=== PATIENT | female | born 1990 | race American Indian/Alaskan Native ===

== ENCOUNTER 2016-12-05 19:51 | Emergency (ER) | payer OTHER ==
[2016-12-05 20:55] LABS: Basophils % (Auto) 0.9 % (0.0-1.8); Eosinophils % (Auto) 2.2 % (0.0-4.3); Hematocrit 37.4 % (30.3-42.9); Hemoglobin 12.2 gm/dl (10.1-14.3); Mean Corpuscular HGB Conc 33 % (30-34); Mean Corpuscular Hemoglobin 28 pg (28-32); Mean Corpuscular Volume 86 fl (79-97); Platelet Count 216 K/mm3 (140-440); Red Blood Count 4.35 M/mm3 (3.65-5.03); Red Cell Distribution Width 13.6 % (13.2-15.2); White Blood Count 4.2 K/mm3 (4.5-11.0)
[2016-12-05 21:15] LABS: Alanine Aminotransferase 11 units/L (7-56); Albumin 4.2 g/dL (3.9-5); Albumin/Globulin Ratio 1.2 %; Alkaline Phosphatase 29 units/L (35-129); Anion Gap 20 mmol/L; BUN/Creatinine Ratio 18.57; Blood Urea Nitrogen 13 mg/dL (7-17); Calcium 8.9 mg/dL (8.4-10.2); Carbon Dioxide 23 mmol/L (22-30); Chloride 94.7 mmol/L (98-107); Glucose 85 mg/dL (65-100); Lipase 24 units/L (13-60); Potassium 3.3 mmol/L (3.6-5.0); Sodium 134 mmol/L (137-145); Total Protein 7.6 g/dL (6.3-8.2)
[2016-12-05 22:41] LABS: Bilirubin,Urine NEG (Negative); Blood,Urine MOD (Negative); Ketones,Urine 80 mg/dL (Negative); Leukocyte Esterase,Urine NEG (Negative); Mucus,Urine 2+ /HPF; Nitrite,Urine NEG (Negative); Urobilinogen,Urine < 2.0 mg/dL (<2.0)
[2016-12-06] MEDS ORDERED: K-DUR PO ONE (00:34)
--- NOTE | 2016-12-06 00:35 | Emergency Department Report ---
ED Female HPI - General Chief complaint: Vaginal Bleeding Stated complaint: ABNORMAL VAG BLEED Time Seen by Provider: 12/06/16 00:32 Source: patient, RN notes reviewed Mode of arrival: Ambulatory Limitations: No Limitations - History of Present Illness Initial comments: This is a 26-year-old female. She is previously unknown to me. Her primary care doctor is Dr. Strong. The patient presents to the ER complaining of crampy vaginal bleeding for the past 3-4 days. Patient describes nonbloody, nonbilious emesis. This has been also going on for the past 3-4 days. There is no right lower quadrant abdominal pain. The patient denies irritative and obstructive urinary symptoms. Patient reports using 3 3 panty liners in the past 24 hours. No chest pain or shortness of breath, no dizziness or lightheadedness. The bleeding is cramping, atypical from her typical menstruation, the patient endorses that she takes control tablets, and further reports that this is not similar to her previous episodes of menstruation. MD Complaint: vaginal bleeding -: Gradual Location: suprapubic Radiation: non-radiating Severity: mild Quality: cramping Consistency: intermittent Improves with: none Worsens with: none Are you Now?: No Associated Symptoms: vaginal bleeding, nausea/vomiting. denies: vaginal discharge - Related Data Sexually active: Yes Home Medications Medication Instructions Recorded Confirmed Last Taken No Known Home Medications [No 12/06/16 12/06/16 Unknown Reported Home Medications] Allergies Allergy/AdvReac Type Severity Reaction Status Date / Time No Known Allergies Allergy Verified 12/06/16 15:32 ED Review of Systems ROS: Stated complaint: ABNORMAL VAG BLEED Other details as noted in HPI Constitutional: denies: fever Eyes: denies: vision change ENT: denies: epistaxis Respiratory: denies: cough Cardiovascular: denies: chest pain Gastrointestinal: nausea, vomiting Genitourinary: abnormal menses. denies: dysuria Musculoskeletal: denies: back pain Skin: denies: lesions Neurological: denies: weakness Psychiatric: as per HPI ED Past Medical Hx - Past Medical History Previous Medical History?: Yes Hx Psychiatric Treatment: Yes (Bipolar) - Surgical History Past Surgical History?: No - Social History Smoking Status: Current Some Day Smoker Substance Use Type: Alcohol, Marijuana - Medications Home Medications: Home Medications Medication Instructions Recorded Confirmed Last Taken Type No Known Home Medications [No 12/06/16 12/06/16 Unknown History Reported Home Medications] ED Physical Exam - General Limitations: No Limitations General appearance: alert, in no apparent distress - Head Head exam: Present: atraumatic, normocephalic - Eye Eye exam: Present: normal appearance, EOMI. Absent: nystagmus - ENT ENT exam: Present: normal exam, normal orophraynx, mucous membranes moist, normal external ear exam - Neck Neck exam: Present: normal inspection, full ROM. Absent: tenderness, meningismus - Respiratory Respiratory exam: Present: normal lung sounds bilaterally. Absent: respiratory distress, wheezes, rales, rhonchi, stridor, chest wall tenderness, accessory muscle use, decreased breath sounds, prolonged expiratory - Cardiovascular Cardiovascular Exam: Present: regular rate, normal rhythm, normal heart sounds. Absent: bradycardia, tachycardia, irregular rhythm, systolic murmur, diastolic murmur, rubs, gallop - GI/Abdominal GI/Abdominal exam: Present: soft, normal bowel sounds. Absent: distended, tenderness, guarding, rebound, rigid, pulsatile mass - External exam: Present: normal external exam Speculum exam: Present: normal speculum exam, vaginal bleeding Bi-manual exam: Present: normal bi-manual exam, other (escorted by nurse FLORESITA TAYLOR). Absent: cervical motion tendernes, adnexal tenderness, adnexal mass - Extremities Exam Extremities exam: Present: normal inspection, full ROM, normal capillary refill. Absent: tenderness, pedal edema, joint swelling, calf tenderness - Back Exam Back exam: Present: normal inspection, full ROM. Absent: tenderness, CVA tenderness (R), CVA tenderness (L), muscle spasm, paraspinal tenderness, vertebral tenderness - Neurological Exam Neurological exam: Present: alert, oriented X3, normal gait, other (Extraocular movements intact. Tongue midline. No facial droop. Facial sensation intact to light touch in the V1, V2, V3 distribution bilaterally. 5 and 5 strength in 4 extremities.. Sensation is intact to light touch in 4 extremities.). Absent : motor sensory deficit - Psychiatric Psychiatric exam: Present: normal affect, normal mood - Skin Skin exam: Present: warm, dry, intact, normal color. Absent: rash ED Course Vital Signs 12/05/16 12/06/16 12/06/16 20:05 00:05 02:06 Temperature 98.5 F Pulse Rate 81 83 73 Respiratory 18 16 16 Rate Blood Pressure 114/85 122/87 108/60 [Right] O2 Sat by Pulse 100 100 99 Oximetry - Reevaluation(s) Reevaluation #1: 12/06/16 01:52 differential diagnosis: Dysfunctional uterine bleeding, electrolyte derangement, , urinary tract infection Assessment and plan: 26-year-old female who is not , with incidental nausea and vomiting, no abdominal tenderness, and I gynecologic examination, urinalysis that does not corroborate UTI. Patient is tolerating liquid feeds. She will be discharged with pain medication, nausea medication, potassium supplementation, instructions to follow up with outpatient gynecology. Given her benign examination, I don't believe she requires emergent imaging at this time. Return precautions are reviewed. ED Medical Decision Making - Lab Data Result diagrams: 12/05/16 20:35 12/05/16 20:35 Vital Signs 12/05/16 12/06/16 20:05 00:05 Temperature 98.5 F Pulse Rate 81 83 Respiratory 18 16 Rate Blood Pressure 114/85 122/87 [Right] O2 Sat by Pulse 100 100 Oximetry Labs 12/05/16 12/05/16 12/05/16 20:35 20:35 20:35 WBC 4.2 L RBC 4.35 Hgb 12.2 Hct 37.4 MCV 86 MCH 28 MCHC 33 RDW 13.6 Plt Count 216 Lymph % (Auto) 33.3 [place] % (Auto) 8.9 H Eos % (Auto) 2.2 Baso % (Auto) 0.9 Lymph # 1.4 [place] # 0.4 Eos # 0.1 Baso # 0.0 Seg Neutrophils % 54.7 Seg Neutrophils # 2.3 Sodium 134 L Potassium 3.3 L Chloride 94.7 L Carbon Dioxide 23 Anion Gap 20 BUN 13 Creatinine 0.7 Estimated GFR > 60 BUN/Creatinine Ratio 18.57 Glucose 85 Calcium 8.9 Total Bilirubin 0.40 AST 17 ALT 11 Alkaline Phosphatase 29 L Total Protein 7.6 Albumin 4.2 Albumin/Globulin Ratio 1.2 Lipase 24 HCG, Qual Negative Urine Color Urine Turbidity Urine pH Ur Specific [place] Urine Protein Urine Glucose (UA) Urine Ketones Urine Blood Urine Nitrite Urine Bilirubin Urine Urobilinogen Ur Leukocyte Esterase Urine WBC (Auto) Urine RBC (Auto) U Epithel Cells (Auto) Urine Mucus 12/05/16 Unknown WBC RBC Hgb Hct MCV MCH MCHC RDW Plt Count Lymph % (Auto) [place] % (Auto) Eos % (Auto) Baso % (Auto) Lymph # [place] # Eos # Baso # Seg Neutrophils % Seg Neutrophils # Sodium Potassium Chloride Carbon Dioxide Anion Gap BUN Creatinine Estimated GFR BUN/Creatinine Ratio Glucose Calcium Total Bilirubin AST ALT Alkaline Phosphatase Total Protein Albumin Albumin/Globulin Ratio Lipase HCG, Qual Urine Color Yellow Urine Turbidity Clear Urine pH 5.0 Ur Specific [place] 1.025 Urine Protein 30 mg/dl Urine Glucose (UA) Neg Urine Ketones 80 Urine Blood Mod Urine Nitrite Neg Urine Bilirubin Neg Urine Urobilinogen < 2.0 Ur Leukocyte Esterase Neg Urine WBC (Auto) 1.0 Urine RBC (Auto) 3.0 U Epithel Cells (Auto) 7.0 Urine Mucus 2+ Critical care attestation.: If time is entered above; I have spent that time in minutes in the direct care of this critically ill patient, excluding procedure time. ED Disposition Clinical Impression: Vaginal bleeding Disposition: DISCHARGED TO HOME OR SELFCARE Is pt being admited?: No Does the pt Need Aspirin: No Condition: Stable Instructions: Dysfunctional Uterine Bleeding (ED) Additional Instructions: Take the pain medication, nausea medication, potassium supplementation as directed. Follow-up with a bar supervisor within the next 10-14 days. Cultures was sent today, results will be available in the next 3-5 days. Please have a primary care doctor/bar supervisor contact the medical records department to obtain culture results. Return to the ER right away with you pain, worsened pain, migration of pain, worsened pains, chills, intractable nausea or vomiting , confusion, inability to tolerate liquid feeds. Follow up with any of the listed gynecology specialist as recommended. Referrals: PRIMARY CAREMD [Primary Care Provider] - 3-5 Days [facility] [Provider Group] - 3-5 Days [facility] [Provider Group] - 3-5 Days [facility] [Provider Group] - 3-5 Days
[2016-12-06] MEDS ORDERED: ZOFRAN ODT PO ONE (01:06)
[2016-12-06] MEDS ORDERED: ZOFRAN ODT ONE (01:08)
[2016-12-06 02:07] VITALS: BP 108/60
== END 2016-12-06 02:07 | disposition home or self-care (01) ==
LOC: ED 19:51
DX: N93.9 Abnormal uterine and vaginal bleeding, unspecified (principal); F31.9 Bipolar disorder, unspecified; F17.200 Nicotine dependence, unspecified, uncomplicated; F12.10 Cannabis abuse, uncomplicated
CPT/HCPCS: 36415; 80053; 81001; 83690; 84703; 85025; 87591; 99284; Q0162

== ENCOUNTER 2016-12-06 15:27 | Emergency (ER) | payer OTHER ==
[2016-12-06 16:10] LABS: Basophils % (Auto) 0.9 % (0.0-1.8); Eosinophils % (Auto) 1.1 % (0.0-4.3); Hematocrit 40.4 % (30.3-42.9); Hemoglobin 13.5 gm/dl (10.1-14.3); Mean Corpuscular HGB Conc 33 % (30-34); Mean Corpuscular Hemoglobin 29 pg (28-32); Mean Corpuscular Volume 87 fl (79-97); Platelet Count 229 K/mm3 (140-440); Red Blood Count 4.65 M/mm3 (3.65-5.03); Red Cell Distribution Width 13.5 % (13.2-15.2); White Blood Count 4.2 K/mm3 (4.5-11.0)
[2016-12-06 16:19] LABS: Anion Gap 21 mmol/L; BUN/Creatinine Ratio 15.71; Blood Urea Nitrogen 11 mg/dL (7-17); Calcium 9.3 mg/dL (8.4-10.2); Carbon Dioxide 19 mmol/L (22-30); Chloride 97.7 mmol/L (98-107); Glucose 91 mg/dL (65-100); Potassium 4.1 mmol/L (3.6-5.0); Sodium 134 mmol/L (137-145)
[2016-12-06] MEDS ORDERED: NACL 0.9% 1000 ML 1,000 ML IV ONE (17:27)
[2016-12-06] MEDS ORDERED: ZOFRAN IV ONE (17:27)
[2016-12-06 18:59] VITALS: BP 99/63
--- NOTE | 2016-12-06 19:22 | Emergency Department Report ---
ED N/V/D HPI - General Chief complaint: Abdominal Pain Stated complaint: VOMITING/DIARRHEA/ABNORMAL VAGINAL BLEEDING Time Seen by Provider: 12/06/16 17:16 Source: patient Mode of arrival: Ambulatory Limitations: No Limitations - History of Present Illness MD complaint: nausea, vomiting, diarrhea -: Gradual Description of Vomiting: food contents, watery Associated Abdominal Pain: No Severity: moderate Quality: cramping Consistency: constant Improves with: none Worsens with: none Associated Symptoms: nausea/vomiting. denies: myalgias, chest pain, cough, diaphoresis, headaches, loss of appetite, shortness of breath, syncope, weakness - Related Data Home Medications Medication Instructions Recorded Confirmed Last Taken No Known Home Medications [No 12/06/16 12/06/16 Unknown Reported Home Medications] Allergies Allergy/AdvReac Type Severity Reaction Status Date / Time No Known Allergies Allergy Verified 12/06/16 15:32 ED Review of Systems ROS: Stated complaint: VOMITING/DIARRHEA/ABNORMAL VAGINAL BLEEDING Other details as noted in HPI Constitutional: denies: chills, fever Eyes: denies: eye pain, eye discharge, vision change ENT: denies: ear pain, throat pain Respiratory: denies: cough, shortness of breath, wheezing Cardiovascular: denies: chest pain, palpitations Endocrine: no symptoms reported Gastrointestinal: vomiting. denies: abdominal pain, nausea, diarrhea Genitourinary: denies: urgency, dysuria, discharge Musculoskeletal: denies: back pain, joint swelling, arthralgia Skin: denies: rash, lesions Neurological: denies: headache, weakness, paresthesias Psychiatric: denies: anxiety, depression Hematological/Lymphatic: denies: easy bleeding, easy bruising ED Past Medical Hx - Past Medical History Hx Psychiatric Treatment: Yes (Bipolar) Hx Asthma: Yes - Surgical History Past Surgical History?: No - Social History Smoking Status: Current Some Day Smoker Substance Use Type: Alcohol, Marijuana - Medications Home Medications: Home Medications Medication Instructions Recorded Confirmed Last Taken Type No Known Home Medications [No 12/06/16 12/06/16 Unknown History Reported Home Medications] ED Physical Exam - General Limitations: No Limitations General appearance: alert, in no apparent distress - Head Head exam: Present: atraumatic, normocephalic - Eye Eye exam: Present: normal appearance - ENT ENT exam: Present: mucous membranes moist - Neck Neck exam: Present: normal inspection - Respiratory Respiratory exam: Present: normal lung sounds bilaterally. Absent: respiratory distress - Cardiovascular Cardiovascular Exam: Present: regular rate, normal rhythm. Absent: systolic murmur, diastolic murmur, rubs, gallop - GI/Abdominal GI/Abdominal exam: Present: soft, normal bowel sounds. Absent: distended, tenderness, guarding, rebound - Extremities Exam Extremities exam: Present: normal inspection - Back Exam Back exam: Present: normal inspection - Neurological Exam Neurological exam: Present: alert, oriented X3 - Psychiatric Psychiatric exam: Present: normal affect, normal mood - Skin Skin exam: Present: warm, dry, intact, normal color. Absent: rash ED Course Vital Signs 12/06/16 12/06/16 12/06/16 15:35 17:09 18:00 Temperature 98.3 F 98.8 F Pulse Rate 96 H 61 76 Respiratory 17 16 14 Rate Blood Pressure 114/74 Blood Pressure 119/76 99/63 [Right] O2 Sat by Pulse 100 97 100 Oximetry ED Medical Decision Making - Lab Data Result diagrams: 12/06/16 15:45 12/06/16 15:45 Critical care attestation.: If time is entered above; I have spent that time in minutes in the direct care of this critically ill patient, excluding procedure time. ED Disposition Clinical Impression: Vomiting Disposition: DC-01 TO HOME OR SELFCARE Is pt being admited?: No Does the pt Need Aspirin: No Condition: Good Instructions: Acute Nausea and Vomiting (ED), Abdominal Pain (ED) Referrals: PRIMARY CARE, [Primary Care Provider] - 3-5 Days Time of Disposition: 19:21
== END 2016-12-06 19:41 ==
LOC: ED 15:27
DX: R10.9 Unspecified abdominal pain (principal); R11.2 Nausea with vomiting, unspecified; R19.7 Diarrhea, unspecified; F17.200 Nicotine dependence, unspecified, uncomplicated; F12.10 Cannabis abuse, uncomplicated; F31.9 Bipolar disorder, unspecified; J45.909 Unspecified asthma, uncomplicated
CPT/HCPCS: 36415; 80048; 85025; 96361; 96374; 99283; J2405; J7030

== ENCOUNTER 2017-05-28 13:08 | Emergency (ER) | payer SELFPAY ==
[2017-05-28 13:23] VITALS: BP 109/69
--- NOTE | 2017-05-28 14:10 | XRay Report ---
ROUTINE CHEST, TWO VIEWS: HISTORY: Cough. The trachea, heart, mediastinal contour, lung padgett and bony thorax are unremarkable. IMPRESSION: Unremarkable chest x-ray.
[2017-05-28] MEDS ORDERED: PROVENTIL IH ONE (15:29)
--- NOTE | 2017-05-28 16:37 | Emergency Department Report ---
- General Chief Complaint: Upper Respiratory Infection Stated Complaint: ASTHMA/KAREN Time Seen by Provider: 05/28/17 15:28 Source: patient Mode of arrival: Ambulatory Limitations: No Limitations - History of Present Illness Initial Comments: This is a 27-year-old female nontoxic, well nourished in appearance, no acute signs of distress presents to the ED with c/o of productive cough, rhinorrhea and wheezing x3 days. Patient describes productive cough as yellow/green mucus production. Patient denies any chest pain, shortness of breathe, fever, chills, nausea, vomiting, abdominal pain, numbness, tingling, hemoptysis, calf pain, calf tenderness, headache, or stiff neck. Denies any allergies. PMH includes asthma and bipolar. Patient denies recent travels, long car rides, or recent hospital stays. MD Complaint: cough, rhinorrhea, nasal congestion, other (wheezing) -: days(s) (3) Severity: mild Severity scale (0 -10): 0 Consistency: constant Improves With: nothing Worsens With: nothing Associated Symptoms: rhinorrhea, nasal congestion, cough. denies: fever, chills , myalgias, diaphoresis, headache, sore throat, stiff neck, chest pain, shortness of breath, abdominal pain, nausea, vomiting, diarrhea, dysuria, rash, confusion, right sweats, weight loss, epistaxis, hoarseness, ear pain Treatments Prior to Arrival: none - Related Data Previous Rx's Medication Instructions Recorded Last Taken Type ALBUTEROL Inhaler [ProAir HFA 2 puff IH QID PRN #1 inhalation 05/28/17 Unknown Rx Inhaler] Azithromycin [Zithromax Z-MARYURI] 250 mg PO DAILY #6 tablet 05/28/17 Unknown Rx predniSONE [Deltasone] 40 mg PO QDAY #5 tab 05/28/17 Unknown Rx Allergies Allergy/AdvReac Type Severity Reaction Status Date / Time No Known Allergies Allergy Verified 12/06/16 15:32 ED Review of Systems ROS: Stated complaint: ASTHMA/KAREN Other details as noted in HPI Constitutional: denies: chills, fever Eyes: denies: eye pain, eye discharge, vision change ENT: denies: ear pain, throat pain Respiratory: cough, wheezing. denies: shortness of breath Cardiovascular: denies: chest pain, palpitations Endocrine: no symptoms reported Gastrointestinal: denies: abdominal pain, nausea, diarrhea Genitourinary: denies: urgency, dysuria, discharge Musculoskeletal: denies: back pain, joint swelling, arthralgia Skin: denies: rash, lesions Neurological: denies: headache, weakness, paresthesias Psychiatric: denies: anxiety, depression Hematological/Lymphatic: denies: easy bleeding, easy bruising ED Past Medical Hx - Past Medical History Previous Medical History?: Yes Hx Psychiatric Treatment: Yes (Bipolar) Hx Asthma: Yes - Surgical History Past Surgical History?: Yes - Social History Smoking Status: Never Smoker Substance Use Type: None - Medications Home Medications: Home Medications Medication Instructions Recorded Confirmed Last Taken Type ALBUTEROL Inhaler [ProAir HFA 2 puff IH QID PRN #1 inhalation 05/28/17 Unknown Rx Inhaler] Azithromycin [Zithromax Z-MARYURI] 250 mg PO DAILY #6 tablet 05/28/17 Unknown Rx predniSONE [Deltasone] 40 mg PO QDAY #5 tab 05/28/17 Unknown Rx ED Physical Exam - General Limitations: No Limitations General appearance: alert, in no apparent distress - Head Head exam: Present: atraumatic, normocephalic, normal inspection - Eye Eye exam: Present: normal appearance, PERRL, EOMI. Absent: scleral icterus, conjunctival injection, nystagmus, periorbital swelling, periorbital tenderness Pupils: Present: normal accommodation - ENT ENT exam: Present: normal exam, normal orophraynx, mucous membranes moist, TM's normal bilaterally, normal external ear exam - Neck Neck exam: Present: normal inspection, full ROM. Absent: tenderness, meningismus, lymphadenopathy, thyromegaly - Respiratory Respiratory exam: Present: normal lung sounds bilaterally, wheezes (bilateral upper and lower lobes inspiratory and expiratory). Absent: respiratory distress , rales, rhonchi, stridor, chest wall tenderness, accessory muscle use, decreased breath sounds, prolonged expiratory - Cardiovascular Cardiovascular Exam: Present: regular rate, normal rhythm, normal heart sounds. Absent: irregular rhythm, systolic murmur, diastolic murmur, rubs, gallop - GI/Abdominal GI/Abdominal exam: Present: soft, normal bowel sounds. Absent: distended, tenderness, guarding, rebound, rigid, diminished bowel sounds - Rectal Rectal exam: Present: deferred - Extremities Exam Extremities exam: Present: normal inspection, full ROM, normal capillary refill. Absent: tenderness, pedal edema, joint swelling, calf tenderness - Back Exam Back exam: Present: normal inspection, full ROM. Absent: tenderness, CVA tenderness (R), CVA tenderness (L), muscle spasm, paraspinal tenderness, vertebral tenderness, rash noted - Neurological Exam Neurological exam: Present: alert, oriented X3, CN II-XII intact, normal gait, reflexes normal - Psychiatric Psychiatric exam: Present: normal affect, normal mood - Skin Skin exam: Present: warm, dry, intact, normal color. Absent: rash ED Course Vital Signs 05/28/17 13:18 Temperature 98.6 F Pulse Rate 99 H Respiratory 16 Rate Blood Pressure 109/69 - Reevaluation(s) Reevaluation #1: 05/28/17 16:44 Patient is speaking in full sentences with no signs of distress noted. ED Medical Decision Making - Medical Decision Making This is a 27-year-old female that presents with upper respiratory infection and wheezing. Patient is stable and was examined by me. Patient received DuoNeb and Solu-Medrol which patient stated symptoms are improving. X-ray of the chest has been obtained and dictated radiologist with normal examination. Patient was notified of x-ray results with no further questions nor by patient. Patient received prednisone, albuterol, and azithromycin at discharge. Patient was instructed Follow-up with a primary care doctor in 3-5 days or if symptoms worsen and continue return to emergency room as soon as possible. At time time of discharge, the patient does not seem toxic or ill in appearance. No acute signs of distress noted. Patient agrees to discharge treatment plan of care. No further questions noted by the patient. Critical care attestation.: If time is entered above; I have spent that time in minutes in the direct care of this critically ill patient, excluding procedure time. ED Disposition Clinical Impression: Wheezing Upper respiratory infection Qualifiers: URI type: unspecified URI Qualified Code(s): J06.9 - Acute upper respiratory infection, unspecified Disposition: - TO HOME OR SELFCARE Is pt being admited?: No Does the pt Need Aspirin: No Condition: Stable Instructions: Upper Respiratory Infection (ED), Azithromycin (By mouth), Albuterol (By breathing), Prednisone (By mouth) Additional Instructions: Follow-up with a primary care doctor in 3-5 days or if symptoms worsen and continue return to emergency room as soon as possible. Prescriptions: ALBUTEROL Inhaler [ProAir HFA Inhaler] 2 puff IH QID PRN #1 inhalation PRN Reason: Shortness Of Breath Azithromycin [Zithromax Z-MARYURI] 250 mg PO DAILY #6 tablet predniSONE [Deltasone] 40 mg PO QDAY #5 tab Referrals: PRIMARY CARE, [Primary Care Provider] - 3-5 Days DARLIN WILSON MD [Staff Physician] - 3-5 Days [facility] [Outside] - 3-[address] [facility] [Outside] - 3-5 Days Forms: Work/School Release Form(ED)
[2017-05-28] MEDS ORDERED: NACL 0.9% NEBU ONE (16:49)
== END 2017-05-28 16:52 | disposition home or self-care (01) ==
LOC: ED 13:08
DX: J06.9 Acute upper respiratory infection, unspecified (principal); J45.909 Unspecified asthma, uncomplicated
CPT/HCPCS: 71020; 94640; 96372; 99283; J2930

== ENCOUNTER 2019-05-12 19:49 | Emergency (ER) | payer SELFPAY ==
[2019-05-12 20:00] VITALS: BP 122/77
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
[2019-05-12] MEDS ORDERED: dexAMETHasone 20 MG/5 ML VIAL IM ONE (22:49)
[2019-05-12] MEDS ORDERED: diphenhydrAMINE 25 MG CAP PO ONE (22:49)
[2019-05-12] MEDS ORDERED: ACETAMINOPHEN 500 MG TAB PO ONE (22:49)
[2019-05-12] MEDS ORDERED: METOCLOPRAMIDE 10 MG TAB PO ONE (22:49)
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
--- NOTE | 2019-05-13 00:33 | XRay Report ---
CERVICAL SPINE 3 VIEWS INDICATION / CLINICAL INFORMATION: neck pain. COMPARISON: None available. FINDINGS: VERTEBRAE: No acute fracture. No significant malalignment. DISC SPACES / FACET JOINTS:No significant abnormality. PARASPINAL SOFT TISSUES:No significant abnormality. ADDITIONAL FINDINGS: None. Signer Name: Sher Flores MD Signed: 05/13/2019 12:29 AM Workstation Name: [id number]
== END 2019-05-13 00:39 | disposition home or self-care (01) ==
LOC: ED 19:49
DX: S16.1XXA Strain of muscle, fascia and tendon at neck level, initial encounter (principal); S09.90XA Unspecified injury of head, initial encounter; F31.9 Bipolar disorder, unspecified; F12.10 Cannabis abuse, uncomplicated; J45.909 Unspecified asthma, uncomplicated; Z79.899 Other long term (current) drug therapy; Y04.0XXA Assault by unarmed brawl or fight, initial encounter; Y93.89 Activity, other specified; Y92.89 Other specified places as the place of occurrence of the external cause; Y99.8 Other external cause status
CPT/HCPCS: 70450; 72040; 96372; 99284; J1100

== ENCOUNTER 2019-06-13 05:43 | Emergency (ER) | payer SELFPAY ==
[2019-06-13 06:42] LABS: Basophils % (Auto) 0.2 % (0.0-1.8); Eosinophils % (Auto) 0.4 % (0.0-4.3); Hematocrit 40.3 % (30.3-42.9); Hemoglobin 13.4 gm/dl (10.1-14.3); Lymphocytes # (Auto) 1.6 K/mm3 (1.2-5.4); Lymphocytes % (Auto) 25.2 % (13.4-35.0); Mean Corpuscular HGB Conc 33 % (30-34); Mean Corpuscular Volume 89 fl (79-97); Monocytes # (Auto) 0.7 K/mm3 (0.0-0.8); Platelet Count 259 K/mm3 (140-440); Red Blood Count 4.54 M/mm3 (3.65-5.03); Red Cell Distribution Width 13.4 % (13.2-15.2)
[2019-06-13 07:00] LABS: Alanine Aminotransferase 14 units/L (7-56); Albumin 4.7 g/dL (3.9-5); BUN/Creatinine Ratio 15; Blood Urea Nitrogen 12 mg/dL (7-17); Calcium 9.4 mg/dL (8.4-10.2); Hemolysis Index 2
[2019-06-13] MEDS ORDERED: FAMOTIDINE 20 MG/2 ML INJ IV ONE (07:25)
[2019-06-13] MEDS ORDERED: SODIUM CHLORIDE 0.9% 1000 ML 1,000 ML IV ONE (07:25)
[2019-06-13] MEDS ORDERED: ONDANSETRON 4 MG/2 ML INJ IV ONE (07:25)
--- NOTE | 2019-06-13 07:27 | Emergency Department Report ---
Vomiting/Diarrhea - HPI Chief Complaint: Nausea/Vomiting/Diarrhea Stated Complaint: VOMITING BLOOD Time Seen by Provider: 06/13/19 07:15 Duration: 1 Day Severity: moderate Nausea/Vomiting Severity: Moderate Diarrhea Severity: Mild Pain Location: Generalized Pain Severity: Mild Symptoms: Yes Watery Diarrhea, Yes Recent Unusual Foods (bulgarian), No Bloody diarrhea, No Fever, No Able to Tolerate Fluids, No Recent Untreated Water, No Recent use of Antibiotics, No Family w/ Similar Symptoms, No Contacts w/ Similar Symptoms, No Rash, No Hematuria, No Recent URI Symptoms Other History: This is a 29-year-old female presents to ED complaining of acute episodes of vomiting for the past day since she had some Estonian food yesterday. Patient denies diarrhea, fever, dysuria or any urinary symptoms. Patient also complaining of mild generalized abdominal pain. Patient states she is not able to tolerate food since yesterday. ED Review of Systems ROS: Stated complaint: VOMITING BLOOD Other details as noted in HPI Comment: All other systems reviewed and negative ED Past Medical Hx - Past Medical History Previous Medical History?: Yes Hx Psychiatric Treatment: Yes (Bipolar) Hx Asthma: Yes - Surgical History Past Surgical History?: No - Social History Smoking Status: Never Smoker Substance Use Type: Marijuana - Medications Home Medications: Home Medications Medication Instructions Recorded Confirmed Last Taken Type ALBUTEROL Inhaler (OR & NICU) 2 puff IH QID PRN #1 inhalation 05/28/17 Unknown Rx [ProAir HFA Inhaler] Azithromycin [Zithromax Z-MARYURI] 250 mg PO DAILY #6 tablet 05/28/17 Unknown Rx predniSONE [Deltasone] 40 mg PO QDAY #5 tab 05/28/17 Unknown Rx Acetaminophen [Acetaminophen TAB] 1,000 mg PO Q6HR PRN #30 tablet 05/13/19 Unknown Rx diphenhydrAMINE [Benadryl CAP] 25 mg PO Q8HR PRN #30 capsule 05/13/19 Unknown Rx Metoclopramide [Reglan TAB] 10 mg PO Q8H PRN #20 tab 06/13/19 Unknown Rx Vomiting Diarrhea Exam - Exam General: Vital signs noted. No distress. Alert and acting appropriately. HEENT: Yes Moist Mucous Membranes, No Pharyngeal Erythema, No Pharyngeal Exudates, No Rhinorrhea, No Conjuctival Injection, No Frontal Tenderness, No Maxillary Tenderness Neck: No Adenopathy, No Rigidity Lungs: Yes Clear Lung Sounds, Yes Good Air Exchange, No Wheezes, No Stridor, No Cough, No Nasal Flaring, No Retractions, No Use of Accessory Muscles Heart exam: Regular: Yes, Murmur: No, Tachycardia: No Abdomen: Tenderness: No, Peritoneal Signs: No, Distention: No, Hyperactive Bowel sounds: No Skin exam: Rash: No, Edema: No, Normal turgor: Yes Neurologic: Alert and oriented, no deficits. Musculoskeletal: Unremarkable. Exam: No CVA tenderness bilaterally, mild tenderness to palpation of the left upper and lower quadrant, no right quadrant tenderness, Walls's sign negative ED Course Vital Signs 06/13/19 05:46 Temperature 98.9 F Pulse Rate 80 Respiratory 18 Rate Blood Pressure 127/82 O2 Sat by Pulse 98 Oximetry - Reevaluation(s) Reevaluation #1: 06/13/19 08:58 Upon reevaluation of patient patient states she is still having abdominal pain which has not relieved. Patient states abdominal pain is localized to the left abdominal region. She has no active vomiting but she states she is still nauseous. Morphine IV for pain and Reglan IV for nausea ED Medical Decision Making - Lab Data Result diagrams: 06/13/19 06:11 06/13/19 06:11 Laboratory Last Values WBC 6.4 K/mm3 (4.5-11.0) 06/13/19 06:11 RBC 4.54 M/mm3 (3.65-5.03) 06/13/19 06:11 Hgb 13.4 gm/dl (10.1-14.3) 06/13/19 06:11 Hct 40.3 % (30.3-42.9) 06/13/19 06:11 MCV 89 fl (79-97) 06/13/19 06:11 MCH 30 pg (28-32) 06/13/19 06:11 MCHC 33 % (30-34) 06/13/19 06:11 RDW 13.4 % (13.2-15.2) 06/13/19 06:11 Plt Count 259 K/mm3 (140-440) 06/13/19 06:11 Lymph % (Auto) 25.2 % (13.4-35.0) 06/13/19 06:11 [place] % (Auto) 11.0 % (0.0-7.3) H 06/13/19 06:11 Eos % (Auto) 0.4 % (0.0-4.3) 06/13/19 06:11 Baso % (Auto) 0.2 % (0.0-1.8) 06/13/19 06:11 Lymph # 1.6 K/mm3 (1.2-5.4) 06/13/19 06:11 [place] # 0.7 K/mm3 (0.0-0.8) 06/13/19 06:11 Eos # 0.0 K/mm3 (0.0-0.4) 06/13/19 06:11 Baso # 0.0 K/mm3 (0.0-0.1) 06/13/19 06:11 Seg Neutrophils % 63.2 % (40.0-70.0) 06/13/19 06:11 Seg Neutrophils # 4.1 K/mm3 (1.8-7.7) 06/13/19 06:11 Sodium 138 mmol/L (137-145) 06/13/19 06:11 Potassium 3.3 mmol/L (3.6-5.0) L 06/13/19 06:11 Chloride 97.7 mmol/L (98-107) L 06/13/19 06:11 Carbon Dioxide 25 mmol/L (22-30) 06/13/19 06:11 Anion Gap 19 mmol/L 06/13/19 06:11 BUN 12 mg/dL (7-17) 06/13/19 06:11 Creatinine 0.8 mg/dL (0.7-1.2) 06/13/19 06:11 Estimated GFR > 60 ml/min 06/13/19 06:11 BUN/Creatinine Ratio 15 % 06/13/19 06:11 Glucose 121 mg/dL (65-100) H 06/13/19 06:11 Calcium 9.4 mg/dL (8.4-10.2) 06/13/19 06:11 Total Bilirubin 0.40 mg/dL (0.1-1.2) 06/13/19 06:11 AST 24 units/L (5-40) 06/13/19 06:11 ALT 14 units/L (7-56) 06/13/19 06:11 Alkaline Phosphatase 49 units/L (35-129) 06/13/19 06:11 Total Protein 8.4 g/dL (6.3-8.2) H 06/13/19 06:11 Albumin 4.7 g/dL (3.9-5) 06/13/19 06:11 Albumin/Globulin Ratio 1.3 % 06/13/19 06:11 Lipase 37 units/L (13-60) 06/13/19 06:11 HCG, Qual Negative (Negative) 06/13/19 06:11 - Medical Decision Making 29-year-old female presents with acute gastroenteritis secondary to food poisoning Vital signs are normal patient is in no acute distress While in ED patient received a liter of fluids, Zofran, Pepcid and pain medication All labs are within normal limits, no signs of leukocytosis. test was negative. I discussed all this findings with the patient. Patient had no acute vomiting in the ER. She reports pain level decreased after meds. Scars liquid diet for the next couple of days. Discussed BRAT diet I discussed with her to follow up with primary care physician. Critical care attestation.: If time is entered above; I have spent that time in minutes in the direct care of this critically ill patient, excluding procedure time. ED Disposition Clinical Impression: Acute gastroenteritis Disposition: DC-01 TO HOME OR SELFCARE Is pt being admited?: No Does the pt Need Aspirin: No Condition: Stable Instructions: Gastroenteritis (ED), Food Poisoning (ED) Additional Instructions: Make sure to follow up with the primary care physician as discussed. Take all your medications as you've been prescribed. If you have any worsening symptoms or develop new symptoms please return to ED immediately. Prescriptions: Metoclopramide [Reglan TAB] 10 mg PO Q8H PRN #20 tab PRN Reason: Headache Referrals: [facility] [Provider Group] - 3-5 Days [facility] [Provider Group] - 3-5 Days [facility] [Outside] - 3-5 Days [facility] [Outside] - 3-5 Days [facility],MD [Primary Care Provider] - 3-5 Days Forms: Work/School Release Form(ED) Time of Disposition: 08:29
[2019-06-13] MEDS ORDERED: MORPHINE 2 MG/1 ML INJ IV ONE (08:57)
[2019-06-13] MEDS ORDERED: METOCLOPRAMIDE 10 MG/2 ML INJ IV ONE (08:57)
[2019-06-13 10:19] VITALS: BP 121/80
== END 2019-06-13 10:17 | disposition home or self-care (01) ==
LOC: ED 05:43
DX: A05.9 Bacterial foodborne intoxication, unspecified (principal); F31.9 Bipolar disorder, unspecified; J45.909 Unspecified asthma, uncomplicated; F12.10 Cannabis abuse, uncomplicated; Z79.899 Other long term (current) drug therapy
CPT/HCPCS: 36415; 80053; 83690; 84703; 85025; 96361; 96365; 96375; 99283; J0696; J2270; J2405; J2765; J7030

== ENCOUNTER 2020-01-26 06:19 | Emergency (ER) | payer SELFPAY ==
[2020-01-26] MEDS ORDERED: SODIUM CHLORIDE 0.9% 1000 ML 1,000 ML IV ONE (06:45)
[2020-01-26] MEDS ORDERED: ONDANSETRON 4 MG/2 ML INJ IV ONE (06:45)
[2020-01-26] MEDS ORDERED: HYOSCYAMINE SUBL 0.125 MG TAB SL ONE (06:45)
[2020-01-26] MEDS ORDERED: FAMOTIDINE 20 MG/2 ML INJ IV ONE (06:45)
--- NOTE | 2020-01-26 06:48 | Event Note ---
ED Screening Note ED Screening Note: 29-year-old -[place] female presents emerged department complaining of left upper quadrant abdominal pain which started on this past Friday spontaneously. She was seen at [facility] on Friday where she received Zofran and urinalysis but no CT scan or laboratory evaluation was obtained states her symptoms are continue to linger despite the medication. Pain is sharp crampy no palliative factors. Currently complains of extreme nausea as well plan is to obtain abdominal labs and CT scan. This initial assessment/diagnostic orders/clinical plan/treatment(s) is/are subject to change based on patients health status, clinical progression and re- assessment by fellow clinical providers in the ED. Further treatment and workup at subsequent clinical providers discretion. Patient/guardian urged not to elope from the ED as their condition may be serious if not clinically assessed and managed. Initial orders include:
[2020-01-26 07:25] LABS: Basophils % (Auto) 0.8 % (0.0-1.8); Eosinophils % (Auto) 0.3 % (0.0-4.3); Hematocrit 45.1 % (30.3-42.9); Hemoglobin 14.5 gm/dl (10.1-14.3); Lymphocytes # (Auto) 1.7 K/mm3 (1.2-5.4); Lymphocytes % (Auto) 27.2 % (13.4-35.0); Mean Corpuscular HGB Conc 32 % (30-34); Mean Corpuscular Volume 91 fl (79-97); Monocytes # (Auto) 0.8 K/mm3 (0.0-0.8); Monocytes % (Auto) 12.4 % (0.0-7.3); Platelet Count 228 K/mm3 (140-440); Red Blood Count 4.94 M/mm3 (3.65-5.03); Red Cell Distribution Width 14.5 % (13.2-15.2)
[2020-01-26 07:34] LABS: Alanine Aminotransferase 22 units/L (7-56); Albumin 4.8 g/dL (3.9-5); BUN/Creatinine Ratio 17; Blood Urea Nitrogen 12 mg/dL (7-17); Calcium 9.3 mg/dL (8.4-10.2); Hemolysis Index 8
[2020-01-26 07:51] LABS: Bilirubin,Urine NEG (Negative); Blood,Urine NEG (Negative); Color,Urine Yellow (Yellow); Mucus,Urine 3+ /HPF; Urobilinogen,Urine < 2.0 mg/dL (<2.0)
[2020-01-26] MEDS ORDERED: POTASSIUM CHLORIDE ER 20 MEQ TAB PO ONE (07:53)
--- NOTE | 2020-01-26 08:29 | Cat Scan Report ---
CT ABDOMEN AND PELVIS WITH CONTRAST INDICATION / CLINICAL INFORMATION: Left upper quadrant pain for 5 days. TECHNIQUE: Axial CT images were obtained through the abdomen and pelvis after 100 cc Omnipaque [address] scans at this location are performed using CT dose reduction for ALARA by means of automated exposure control. COMPARISON: None available. FINDINGS: LOWER CHEST: No significant abnormality. LIVER: No significant abnormality. GALLBLADDER: No significant abnormality. BILE DUCTS: No significant abnormality. PANCREAS: No significant abnormality. SPLEEN: No significant abnormality. ADRENALS: No significant abnormality. RIGHT KIDNEY / URETER: No significant abnormality. LEFT KIDNEY / URETER: No significant abnormality. STOMACH / SMALL BOWEL: No significant abnormality. COLON: No significant abnormality. APPENDIX: No significant abnormality. PERITONEUM: No free fluid. No free air. No fluid collection. LYMPH NODES: No significant adenopathy. AORTA / ARTERIES: No significant abnormality. IVC / VEINS: No significant abnormality. URINARY BLADDER: No significant abnormality. REPRODUCTIVE ORGANS: No significant abnormality. ADDITIONAL FINDINGS: None. SKELETAL SYSTEM: No significant abnormality. IMPRESSION: No acute abnormality of the abdomen or pelvis. Signer Name: Mandeep Arguelles MD Signed: 01/26/2020 8:25 AM Workstation Name: [id number]
--- NOTE | 2020-01-26 08:52 | Emergency Department Report ---
ED General Adult HPI - General Chief complaint: Abdominal Pain Stated complaint: VOMITING, LOWER LEFT ABDOMINAL PAIN Time Seen by Provider: 01/26/20 07:08 Source: patient Mode of arrival: Ambulatory Limitations: No Limitations - History of Present Illness Initial comments: Patient is a 29-year-old female presents emergency room with complaints of upper upper quadrant abdominal pain that began 3 days ago. She has associated nausea, vomiting, diarrhea. She denies any fever, dysuria, hematochezia, melena, hematemesis, pus in the stool. She has a past medical history of asthma and bipolar. No allergies to medications. Last menstrual cycle 2 weeks ago. She endorses marijuana use and occasional alcohol use. No other drug use per patient. She states that she went to [facility] 2 days ago and was prescribed Zofran and dicyclomine, she did not have a CT scan at that time. - Related Data Previous Rx's Medication Instructions Recorded Last Taken Type Albuterol Mdi (or & Nicu Only) 2 puff IH QID PRN #1 inhalation 05/28/17 Unknown Rx [ProAir HFA Inhaler] Azithromycin [Zithromax Z-MARYURI] 250 mg PO DAILY #6 tablet 05/28/17 Unknown Rx predniSONE [Deltasone] 40 mg PO QDAY #5 tab 05/28/17 Unknown Rx Acetaminophen [Acetaminophen TAB] 1,000 mg PO Q6HR PRN #30 tablet 05/13/19 Unkno wn Rx diphenhydrAMINE [Benadryl CAP] 25 mg PO Q8HR PRN #30 capsule 05/13/19 Unknown Rx Metoclopramide [Reglan TAB] 10 mg PO Q8H PRN #20 tab 06/13/19 Unknown Rx Famotidine [Pepcid] 40 mg PO QHS #30 tablet 01/26/20 Unknown Rx Sucralfate [Carafate] 1 gm PO ACHS 7 Days #21 tablet 01/26/20 Unknown Rx Allergies Allergy/AdvReac Type Severity Reaction Status Date / Time No Known Allergies Allergy Verified 12/06/16 15:32 ED Review of Systems ROS: Stated complaint: VOMITING, LOWER LEFT ABDOMINAL PAIN Other details as noted in HPI Comment: All other systems reviewed and negative ED Past Medical Hx - Past Medical History Previous Medical History?: Yes Hx Psychiatric Treatment: Yes (Bipolar) Hx Asthma: Yes - Surgical History Past Surgical History?: No - Social History Smoking Status: Never Smoker Substance Use Type: Marijuana - Medications Home Medications: Home Medications Medication Instructions Recorded Confirmed Last Taken Type Albuterol Mdi (or & Nicu Only) 2 puff IH QID PRN #1 inhalation 05/28/17 Unknown Rx [ProAir HFA Inhaler] Azithromycin [Zithromax Z-MARYURI] 250 mg PO DAILY #6 tablet 05/28/17 Unknown Rx predniSONE [Deltasone] 40 mg PO QDAY #5 tab 05/28/17 Unknown Rx Acetaminophen [Acetaminophen TAB] 1,000 mg PO Q6HR PRN #30 tablet 05/13/19 Unknown Rx diphenhydrAMINE [Benadryl CAP] 25 mg PO Q8HR PRN #30 capsule 05/13/19 Unknown Rx Metoclopramide [Reglan TAB] 10 mg PO Q8H PRN #20 tab 06/13/19 Unknown Rx Famotidine [Pepcid] 40 mg PO QHS #30 tablet 01/26/20 Unknown Rx Sucralfate [Carafate] 1 gm PO ACHS 7 Days #21 tablet 01/26/20 Unknown Rx ED Physical Exam - General Limitations: No Limitations General appearance: alert, in no apparent distress - Head Head exam: Present: atraumatic, normocephalic - Eye Eye exam: Present: normal appearance - ENT ENT exam: Present: mucous membranes dry (mildly) - Respiratory Respiratory exam: Present: normal lung sounds bilaterally. Absent: respiratory distress, wheezes, rales, rhonchi, stridor, chest wall tenderness, accessory muscle use, decreased breath sounds, prolonged expiratory - Cardiovascular Cardiovascular Exam: Present: regular rate, normal rhythm, normal heart sounds. Absent: systolic murmur, diastolic murmur, rubs, gallop - GI/Abdominal GI/Abdominal exam: Present: soft, tenderness (LUQ), normal bowel sounds. Absent: distended, guarding, rebound, rigid - Neurological Exam Neurological exam: Present: alert, oriented X3 - Psychiatric Psychiatric exam: Present: normal affect, normal mood - Skin Skin exam: Present: warm, dry, intact ED Course Vital Signs 01/26/20 01/26/20 06:24 09:03 Temperature 98.6 F 98 F Pulse Rate 76 69 Respiratory 20 18 Rate Blood Pressure 134/101 Blood Pressure 141/69 [Left] O2 Sat by Pulse 100 99 Oximetry ED Medical Decision Making - Lab Data Result diagrams: 01/26/20 06:47 01/26/20 06:47 Lab Results 01/26/20 01/26/20 01/26/20 Range/Units 06:47 06:47 06:47 WBC 6.2 (4.5-11.0) K/mm3 RBC 4.94 (3.65-5.03) M/mm3 Hgb 14.5 H (10.1-14.3) gm/dl Hct 45.1 H (30.3-42.9) % MCV 91 (79-97) fl MCH 30 (28-32) pg MCHC 32 (30-34) % RDW 14.5 (13.2-15.2) % Plt Count 228 (140-440) K/mm3 Lymph % (Auto) 27.2 (13.4-35.0) % [place] % (Auto) 12.4 H (0.0-7.3) % Eos % (Auto) 0.3 (0.0-4.3) % Baso % (Auto) 0.8 (0.0-1.8) % Lymph # 1.7 (1.2-5.4) K/mm3 [place] # 0.8 (0.0-0.8) K/mm3 Eos # 0.0 (0.0-0.4) K/mm3 Baso # 0.0 (0.0-0.1) K/mm3 Seg Neutrophils % 59.3 (40.0-70.0) % Seg Neutrophils # 3.7 (1.8-7.7) K/mm3 Sodium 135 L (137-145) mmol/L Potassium 3.3 L (3.6-5.0) mmol/L Chloride 94.9 L (98-107) mmol/L Carbon Dioxide 23 (22-30) mmol/L Anion Gap 20 mmol/L BUN 12 (7-17) mg/dL Creatinine 0.7 (0.7-1.2) mg/dL Estimated GFR > 60 ml/min BUN/Creatinine Ratio 17 % Glucose 108 H (65-100) mg/dL Calcium 9.3 (8.4-10.2) mg/dL Total Bilirubin 0.50 (0.1-1.2) mg/dL AST 24 (5-40) units/L ALT 22 (7-56) units/L Alkaline Phosphatase 41 (35-129) units/L Total Protein 8.1 (6.3-8.2) g/dL Albumin 4.8 (3.9-5) g/dL Albumin/Globulin Ratio 1.5 % Lipase 25 (13-60) units/L HCG, Qual Negative (Negative) Urine Color (Yellow) Urine Turbidity (Clear) Urine pH (5.0-7.0) Ur Specific [place] (1.003-1.030) Urine Protein (Negative) mg/dL Urine Glucose (UA) (Negative) mg/dL Urine Ketones (Negative) mg/dL Urine Blood (Negative) Urine Nitrite (Negative) Urine Bilirubin (Negative) Urine Urobilinogen (<2.0) mg/dL Ur Leukocyte Esterase (Negative) Urine WBC (Auto) (0.0-6.0) /HPF Urine RBC (Auto) (0.0-6.0) /HPF U Epithel Cells (Auto) (0-13.0) /HPF Urine Mucus /HPF // Range/Units 07:11 WBC (4.5-11.0) K/mm3 RBC (3.65-5.03) M/mm3 Hgb (10.1-14.3) gm/dl Hct (30.3-42.9) % MCV (79-97) fl MCH (28-32) pg MCHC (30-34) % RDW (13.2-15.2) % Plt Count (140-440) K/mm3 Lymph % (Auto) (13.4-35.0) % [place] % (Auto) (0.0-7.3) % Eos % (Auto) (0.0-4.3) % Baso % (Auto) (0.0-1.8) % Lymph # (1.2-5.4) K/mm3 [place] # (0.0-0.8) K/mm3 Eos # (0.0-0.4) K/mm3 Baso # (0.0-0.1) K/mm3 Seg Neutrophils % (40.0-70.0) % Seg Neutrophils # (1.8-7.7) K/mm3 Sodium (137-145) mmol/L Potassium (3.6-5.0) mmol/L Chloride (98-107) mmol/L Carbon Dioxide (22-30) mmol/L Anion Gap mmol/L BUN (7-17) mg/dL Creatinine (0.7-1.2) mg/dL Estimated GFR ml/min BUN/Creatinine Ratio % Glucose (65-100) mg/dL Calcium (8.4-10.2) mg/dL Total Bilirubin (0.1-1.2) mg/dL AST (5-40) units/L ALT (7-56) units/L Alkaline Phosphatase (35-129) units/L Total Protein (6.3-8.2) g/dL Albumin (3.9-5) g/dL Albumin/Globulin Ratio % Lipase (13-60) units/L HCG, Qual (Negative) Urine Color Yellow (Yellow) Urine Turbidity Clear (Clear) Urine pH 5.0 (5.0-7.0) Ur Specific [place] 1.032 H (1.003-1.030) Urine Protein 30 mg/dl (Negative) mg/dL Urine Glucose (UA) 50 (Negative) mg/dL Urine Ketones 80 (Negative) mg/dL Urine Blood Neg (Negative) Urine Nitrite Neg (Negative) Urine Bilirubin Neg (Negative) Urine Urobilinogen < 2.0 (<2.0) mg/dL Ur Leukocyte Esterase Neg (Negative) Urine WBC (Auto) 3.0 (0.0-6.0) /HPF Urine RBC (Auto) 3.0 (0.0-6.0) /HPF U Epithel Cells (Auto) 1.0 (0-13.0) /HPF Urine Mucus 3+ /HPF Vital Signs 01/26/20 01/26/20 06:24 09:03 Temperature 98.6 F 98 F Pulse Rate 76 69 Respiratory 20 18 Rate Blood Pressure 134/101 Blood Pressure 141/69 [Left] O2 Sat by Pulse 100 99 Oximetry - Radiology Data Radiology results: report reviewed Ordering Physician: NICK FARIA Date of Service: 01/26/20 Procedure(s): CT abdomen pelvis w con Accession Number(s): [id number] cc: NICK FARIA CT ABDOMEN AND PELVIS WITH CONTRAST INDICATION / CLINICAL INFORMATION: Left upper quadrant pain for 5 days. TECHNIQUE: Axial CT images were obtained through the abdomen and pelvis after 100 cc Omnipaque [address] scans at this location are performed using CT dose reduction for ALARA by means of automated exposure control. COMPARISON: None available. FINDINGS: LOWER CHEST: No significant abnormality. LIVER: No significant abnormality. GALLBLADDER: No significant abnormality. BILE DUCTS: No significant abnormality. PANCREAS: No significant abnormality. SPLEEN: No significant abnormality. ADRENALS: No significant abnormality. RIGHT KIDNEY / URETER: No significant abnormality. LEFT KIDNEY / URETER: No significant abnormality. STOMACH / SMALL BOWEL: No significant abnormality. COLON: No significant abnormality. APPENDIX: No significant abnormality. PERITONEUM: No free fluid. No free air. No fluid collection. LYMPH NODES: No significant adenopathy. AORTA / ARTERIES: No significant abnormality. IVC / VEINS: No significant abnormality. URINARY BLADDER: No significant abnormality. REPRODUCTIVE ORGANS: No significant abnormality. ADDITIONAL FINDINGS: None. SKELETAL SYSTEM: No significant abnormality. IMPRESSION: No acute abnormality of the abdomen or pelvis. Signer Name: Mandeep Arguelles MD Signed: 01/26/2020 8:25 AM Workstation Name: [id number] Transcribed By: [place] Dictated By: Mandeep Arguelles MD Electronically Authenticated By: Mandeep Arguelles MD Signed Date/Time: 01/26/20824 DD/ 8 TD/TT: - Medical Decision Making Patient is a 29-year-old female presents emergency room with complaints of upper upper quadrant abdominal pain that began 3 days ago. She has associated nausea, vomiting, diarrhea. She denies any fever, dysuria, hematochezia, melena, hematemesis, pus in the stool. She has a past medical history of asthma and bipolar. No allergies to medications. Last menstrual cycle 2 weeks ago. She endorses marijuana use and occasional alcohol use. No other drug use per patient. She states that she went to [facility] 2 days ago and was prescribed Zofran and dicyclomine, she did not have a CT scan at that time. Vitals are stable. On exam patient has left upper quadrant tenderness palpation, no guarding, no rebound, no rigidity, normal bowel sounds, no peritoneal signs. Labs significant for mild dehydration and hypokalemia, repleted with IV fluids and K-Dur. UA without evidence of UTI. CT abdomen pelvis with contrast performed to rule out intra-abdominal pathology and shows No acute abnormality of the abdomen or pelvis. Patient given Pepcid, Levsin, Zofran and symptoms improved. Patient had no further episodes of vomiting while in the emergency department was able to tolerate p.o. intake without difficulty. Symptoms could be related to gastroenteritis versus gastritis versus PUD patient will be referred to primary care physician and GI doctor. Patient given prescription for Carafate and Pepcid. Advised patient Please take medication as prescribed. Please take the medications that you were prescribed during your other hospital visit. You can use the Zofran for nausea vomiting and the dicyclomine for diarrhea or abdominal cramping. Increase your water intake. Please start with a bland liquid diet and slowly advance your diet as tolerated. Avoid anything sugary or greasy. Avoid alcohol use or marijuana use. Follow-up with a GI doctor. Follow-up with a primary care doctor for reexamination. Return to emergency room immediately for any new or worsening symptoms. - Differential Diagnosis Gastroenteritis, PUD, H. pylori, bowel obstruction, UTI, mass, hernia Critical care attestation.: If time is entered above; I have spent that time in minutes in the direct care of this critically ill patient, excluding procedure time. ED Disposition Clinical Impression: Nausea vomiting and diarrhea Abdominal pain Qualifiers: Abdominal location: left upper quadrant Qualified Code(s): R10.12 - Left upper quadrant pain Disposition: DC-01 TO HOME OR SELFCARE Is pt being admited?: No Does the pt Need Aspirin: No Condition: Stable Instructions: Gastritis (ED), Gastroenteritis (ED) Additional Instructions: Please take medication as prescribed. Please take the medications that you were prescribed during your other hospital visit. You can use the Zofran for nausea vomiting and the dicyclomine for diarrhea or abdominal cramping. Increase your water intake. Please start with a bland liquid diet and slowly advance your diet as tolerated. Avoid anything sugary or greasy. Avoid alcohol use or marijuana use. Follow-up with a GI doctor. Follow-up with a primary care doctor for reexamination. Return to emergency room immediately for any new or worsening symptoms. Prescriptions: Famotidine [Pepcid] 40 mg PO QHS #30 tablet Sucralfate [Carafate] 1 gm PO ACHS 7 Days #21 tablet Referrals: [facility] [Provider Group] - 2-3 Days [facility] [Provider Group] - 2-3 Days CARBUCCIA,FEDERICO, MD [Staff Physician] - 2-3 Days [facility] [Outside] - 2-3 Days Time of Disposition: 08:49 Print Language: MONGOLIAN
[2020-01-26 09:04] VITALS: BP 141/69
== END 2020-01-26 09:29 | disposition home or self-care (01) ==
LOC: ED 06:19
DX: R19.7 Diarrhea, unspecified (principal); R11.2 Nausea with vomiting, unspecified; R10.12 Left upper quadrant pain; F31.9 Bipolar disorder, unspecified; J45.909 Unspecified asthma, uncomplicated; F12.90 Cannabis use, unspecified, uncomplicated; Z79.899 Other long term (current) drug therapy
CPT/HCPCS: 36415; 74177; 80053; 81001; 83690; 84703; 85025; 96361; 96374; 96375; 99284; J2405; J7030; Q9967

== ENCOUNTER 2020-04-30 14:15 | Emergency (ER) | payer SELFPAY ==
[2020-04-30 14:26] VITALS: BP 144/93
[2020-04-30] MEDS ORDERED: ALBUTEROL 2.5 MG/3 ML NEBU IH ONE ×3 (14:32→14:46)
[2020-04-30] MEDS ORDERED: IPRATROPIUM 0.02% NEBU 2.5 ML IH ONE ×2 (14:32→14:46)
[2020-04-30] MEDS ORDERED: dexAMETHasone 20 MG/5 ML VIAL IV ONE (14:32)
--- NOTE | 2020-04-30 14:37 | Event Note ---
ED Screening Note Date of service: 04/30/20 Time: 14:37 ED Screening Note: The patient was evaluated in the emergency department for symptoms described in the history of present illness. He/she was evaluated in the context of the global COVID-19 pandemic, which necessitated consideration that the patient might be at risk for infection with the virus that causes COVID-19. Institutional protocols and algorithms that pertain to the evaluation of patients at risk for COVID-19 are in a state of rapid change based on information released by regulatory bodies including the CDC and federal and state organizations. These policies and algorithms were followed during the patient's care in the emergency department. Please note that these policies, procedures and recommendations changed on a rapid basis. 30-year old asthmatic presents to the emergency room complaining of shortness of breath x4 days. Patient complains of runny nose nasal congestion cough nausea but no vomiting no fever no chills. She does still smoke cigarettes. States that she has been given herself neb treatments but not working. She thinks her nebulizer solution could be old. This initial assessment/diagnostic orders/clinical plan/treatment(s) is/are subject to change based on patients health status, clinical progression and re- assessment by fellow clinical providers in the ED. Further treatment and workup at subsequent clinical providers discretion. Patient/guardian urged not to elope from the ED as their condition may be serious if not clinically assessed and managed. Initial orders include:
[2020-04-30] MEDS ORDERED: dexAMETHasone 20 MG/5 ML VIAL IM ONE (14:46)
--- NOTE | 2020-04-30 15:17 | XRay Report ---
XR chest routine 2V INDICATION / CLINICAL INFORMATION: Shortness of breath or wheezing or rhonchi COMPARISON: 05/28/2017 FINDINGS: SUPPORT DEVICES: None. HEART / MEDIASTINUM: No significant abnormality. LUNGS / PLEURA: Lungs are clear. Costophrenic sulci are sharp. No pneumothorax. ADDITIONAL FINDINGS: No significant additional findings. IMPRESSION: 1. No acute findings. Signer Name: Adán Perry MD Signed: 04/30/2020 3:13 PM Workstation Name: [id number]
--- NOTE | 2020-04-30 16:10 | Emergency Department Report ---
ED Asthma HPI - General Chief Complaint: Adult Asthma Stated Complaint: POSS COVID/ASTHMA/KAREN Time Seen by Provider: 04/30/20 14:31 Source: patient Mode of arrival: Ambulatory Limitations: No Limitations - History of Present Illness Initial Comments: This is a 30-year-old female nontoxic, well nourished in appearance, no acute signs of distress presents to the ED with c/o of acute on chronic asthma exacerbation. Patient stated has taken albuterol pump inh with no significant relief. Patient stated that she has seasonal allergies to pollen and has been outside that might have triggered her symptoms. Patient stated has a mild dry cough. Patient denies any sick contact. Patient denies any recent travels, long car, recent hospital stays. Patient denies any calf pain or calf tenderness. Patient denies any chest pain, fever, chills, nausea, vomiting, hemoptysis, numbness, tingling, headache or stiff neck. Past medical history includes asthma. MD Complaint: "asthma attack", shortness of breath, wheezing -: This afternoon Asthma History: childhood onset Severity: mild Context: none known Associated Symptoms: dry cough. denies: fever, chest pain, hemoptysis, leg edema, syncope Treatments Prior to Arrival: inhaled bronchodilator - Related Data Current Asthma Therapy: inhaled bronchodilator Previous Rx's Medication Instructions Recorded Last Taken Type Albuterol Mdi (or & Nicu Only) 2 puff IH QID PRN #1 inhalation 05/28/17 Unknown Rx [ProAir HFA Inhaler] Azithromycin [Zithromax Z-MARYURI] 250 mg PO DAILY #6 tablet 05/28/17 Unknown Rx predniSONE [Deltasone] 40 mg PO QDAY #5 tab 05/28/17 Unknown Rx Acetaminophen [Acetaminophen TAB] 1,000 mg PO Q6HR PRN #30 tablet 05/13/19 U nknown Rx diphenhydrAMINE [Benadryl CAP] 25 mg PO Q8HR PRN #30 capsule 05/13/19 Unknown Rx Metoclopramide [Reglan TAB] 10 mg PO Q8H PRN #20 tab 06/13/19 Unknown Rx Famotidine [Pepcid] 40 mg PO QHS #30 tablet 01/26/20 Unknown Rx Sucralfate [Carafate] 1 gm PO ACHS 7 Days #21 tablet 07/22/20 Unknown Rx Albuterol Mdi (or & Nicu Only) 2 puff IH QID PRN #8.5 gram 04/30/20 Unknown Rx [ProAir HFA Inhaler] Prednisone [predniSONE 10 mg 10 mg PO .TAPER #1 tab.ds.pk 04/30/20 Unknown Rx (6-Day Pack, 21 Tabs)] Allergies Allergy/AdvReac Type Severity Reaction Status Date / Time No Known Allergies Allergy Verified 12/06/16 15:32 ED Review of Systems ROS: Stated complaint: POSS COVID/ASTHMA/KAREN Other details as noted in HPI Constitutional: denies: chills, fever Eyes: denies: eye pain, eye discharge, vision change ENT: congestion. denies: ear pain, throat pain Respiratory: cough, shortness of breath, wheezing Cardiovascular: denies: chest pain, palpitations Endocrine: no symptoms reported Gastrointestinal: denies: abdominal pain, nausea, diarrhea Genitourinary: denies: urgency, dysuria, discharge Musculoskeletal: denies: back pain, joint swelling, arthralgia Skin: denies: rash, lesions Neurological: denies: headache, weakness, paresthesias Psychiatric: denies: anxiety, depression Hematological/Lymphatic: denies: easy bleeding, easy bruising ED Past Medical Hx - Past Medical History Previous Medical History?: Yes Hx Psychiatric Treatment: Yes (Bipolar) Hx Asthma: Yes - Surgical History Past Surgical History?: No - Social History Smoking Status: Current Every Day Smoker Substance Use Type: Alcohol, Marijuana - Medications Home Medications: Home Medications Medication Instructions Recorded Confirmed Last Taken Type Albuterol Mdi (or & Nicu Only) 2 puff IH QID PRN #1 inhalation 05/28/17 Unknown Rx [ProAir HFA Inhaler] Azithromycin [Zithromax Z-MARYURI] 250 mg PO DAILY #6 tablet 05/28/17 Unknown Rx predniSONE [Deltasone] 40 mg PO QDAY #5 tab 05/28/17 Unknown Rx Acetaminophen [Acetaminophen TAB] 1,000 mg PO Q6HR PRN #30 tablet 05/13/19 Unknown Rx diphenhydrAMINE [Benadryl CAP] 25 mg PO Q8HR PRN #30 capsule 05/13/19 Unknown Rx Metoclopramide [Reglan TAB] 10 mg PO Q8H PRN #20 tab 06/13/19 Unknown Rx Famotidine [Pepcid] 40 mg PO QHS #30 tablet 01/26/20 Unknown Rx Sucralfate [Carafate] 1 gm PO ACHS 7 Days #21 tablet 01/26/20 Unknown Rx Albuterol Mdi (or & Nicu Only) 2 puff IH QID PRN #8.5 gram 04/30/20 Unknown Rx [ProAir HFA Inhaler] Prednisone [predniSONE 10 mg 10 mg PO .TAPER #1 tab.ds.pk 04/30/20 Unknown Rx (6-Day Pack, 21 Tabs)] ED Physical Exam - General Limitations: No Limitations General appearance: alert, in no apparent distress - Head Head exam: Present: atraumatic, normocephalic - Eye Eye exam: Present: normal appearance - Neck Neck exam: Present: normal inspection, full ROM. Absent: tenderness, meningismus, lymphadenopathy - Respiratory Respiratory exam: Present: wheezes. Absent: respiratory distress, rales, rhonchi, stridor, chest wall tenderness, accessory muscle use, decreased breath sounds, prolonged expiratory - Cardiovascular Cardiovascular Exam: Present: regular rate, normal rhythm, normal heart sounds. Absent: bradycardia, tachycardia, irregular rhythm, systolic murmur, diastolic murmur, rubs, gallop - Extremities Exam Extremities exam: Present: full ROM - Back Exam Back exam: Present: full ROM - Neurological Exam Neurological exam: Present: alert, oriented X3, normal gait - Psychiatric Psychiatric exam: Present: normal affect, normal mood - Skin Skin exam: Present: warm, dry, intact, normal color. Absent: rash ED Course Vital Signs 04/30/20 04/30/20 04/30/20 14:23 15:38 17:35 Temperature 98.4 F Pulse Rate 84 87 Pulse Rate [ 77 Anterior Bilateral Throughout] Respiratory 20 16 Rate Respiratory 22 Rate [Anterior Bilateral Throughout] Blood Pressure 144/93 O2 Sat by Pulse 95 100 Oximetry - Reevaluation(s) Reevaluation #1: 04/30/20 16:10 Patient is speaking in full sentences with no signs of distress noted. ED Medical Decision Making - Radiology Data Referring Physician: LÓPEZ MCGOVERN Patient Name: MICHAEL DIGGS Date of : 1990 Sex: Female Report Date: 2020-04-30 Report Status: Finalized [address] [place] [address] XRay Report Signed Patient: MICHAEL DIGGS MR#: [id number] : 1990 Acct:[id number] Age/Sex: 30 / F ADM Date: 04/30/20 Loc: ED Attending Dr: Ordering Physician: NICK KANG Date of Service: 04/30/20 Procedure(s): XR chest routine 2V Accession Number(s): [id number] cc: NICK KANG Fluoro Time In Minutes: XR chest routine 2V INDICATION / CLINICAL INFORMATION: Shortness of breath or wheezing or rhonchi COMPARISON: 05/28/2017 FINDINGS: SUPPORT DEVICES: None. HEART / MEDIASTINUM: No significant abnormality. LUNGS / PLEURA: Lungs are clear. Costophrenic sulci are sharp. No pneumothorax. ADDITIONAL FINDINGS: No significant additional findings. IMPRESSION: 1. No acute findings. Signer Name: Adán Perry MD Signed: 04/30/2020 3:13 PM Workstation Name: [id number] Transcribed By: CS Dictated By: Adán Perry MD Electronically Authenticated By: Adán Perry MD Signed Date/Time: 04/30/201512 DD/ 11 TD/TT: - Medical Decision Making This is a 30-year-old female that presents with asthma exacerbation. Patient is stable and was examined by me. Chest x-ray has been obtained and dictated by the radiologist within normal limits. Patient is notified of the x-ray report with no questions noted by the patient. Patient did receive breathing treatment and steroids in the ED which patient the symptoms has resolved and subsided. Posttreatment and there is no wheezing upon auscultation. Patient is discharged with albuterol and prednisone. Patient was referred to Follow-up with a primary care doctor in 3-5 days or if symptoms worsen and continue return to emergency room as soon as possible. At time of discharge, the patient does not seem toxic or ill in appearance. No acute signs of distress noted. Patient agrees to discharge treatment plan of care. No further questions noted by the patient. This chart is dictated with using [email or web address] Critical care attestation.: If time is entered above; I have spent that time in minutes in the direct care of this critically ill patient, excluding procedure time. ED Disposition Clinical Impression: Asthma exacerbation Qualifiers: Asthma severity: mild Asthma persistence: intermittent Qualified Code(s): J45.21 - Mild intermittent asthma with (acute) exacerbation Disposition: TO HOME OR SELFCARE Is pt being admited?: No Does the pt Need Aspirin: No Condition: Stable Instructions: Asthma (ED) Additional Instructions: Follow-up with a primary care doctor in 3-5 days or if symptoms worsen and continue return to emergency room as soon as possible. Prescriptions: Prednisone [predniSONE 10 mg (6-Day Pack, 21 Tabs)] 10 mg PO .TAPER #1 tab.ds.pk Albuterol Mdi (or & Nicu Only) [ProAir HFA Inhaler] 2 puff IH QID PRN #8.5 gram PRN Reason: Shortness Of Breath Referrals: PRIMARY MD ADAIR [Primary Care Provider] - 3-5 Days FEDERICO CLARK MD [Staff Physician] - 3-5 Days [facility] [Provider Group] - 3-5 Days Forms: Work/School Release Form(ED)
== END 2020-04-30 18:05 | disposition home or self-care (01) ==
LOC: ED 14:15
DX: J45.901 Unspecified asthma with (acute) exacerbation (principal); F31.9 Bipolar disorder, unspecified; F17.200 Nicotine dependence, unspecified, uncomplicated; F12.90 Cannabis use, unspecified, uncomplicated; Z79.899 Other long term (current) drug therapy
CPT/HCPCS: 71046; 94644; 96372; 99283; J1100

== ENCOUNTER 2020-05-02 14:40 | Emergency (ER) | payer SELFPAY ==
[2020-05-02] MEDS ORDERED: IPRATROPIUM/ALBUTEROL SULFATE 3 ML AMPUL.NEB IH ONE (15:21)
[2020-05-02] MEDS ORDERED: ALBUTEROL 2.5 MG/3 ML NEBU IH ONE (21:08)
[2020-05-02] MEDS ORDERED: predniSONE 50 MG TAB PO ONE (21:08)
--- NOTE | 2020-05-02 21:19 | Emergency Department Report ---
ED Asthma HPI - General PUI?: No Time Seen by Provider: 05/02/20 21:14 Source: patient Mode of arrival: Ambulatory - History of Present Illness Initial Comments: 30-year-old -[place] female past no history of asthma presents emergency department complaining of cough congestion with productive mucus. Reports no fever chills or sweats has been dispensing the same symptoms for but nearly 1 week. 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 No headache no blurred vision no chest pain MD Complaint: shortness of breath, wheezing -: days(s) Severity: mild Context: none known Associated Symptoms: productive cough Treatments Prior to Arrival: inhaled bronchodilator - Related Data Previous Rx's Medication Instructions Recorded Last Taken Type Albuterol Mdi (or & Nicu Only) 2 puff IH QID PRN #1 inhalation 05/28/17 Unknown Rx [ProAir HFA Inhaler] Azithromycin [Zithromax Z-MARYURI] 250 mg PO DAILY #6 tablet 05/28/17 Unknown Rx predniSONE [Deltasone] 40 mg PO QDAY #5 tab 05/28/17 Unknown Rx Acetaminophen [Acetaminophen TAB] 1,000 mg PO Q6HR PRN #30 tablet 05/13/19 Unknown Rx diphenhydrAMINE [Benadryl CAP] 25 mg PO Q8HR PRN #30 capsule 05/13/19 Unknown Rx Metoclopramide [Reglan TAB] 10 mg PO Q8H PRN #20 tab 06/13/19 Unknown Rx Famotidine [Pepcid] 40 mg PO QHS #30 tablet 01/26/20 Unknown Rx Sucralfate [Carafate] 1 gm PO ACHS 7 Days #21 tablet 01/26/20 Unknown Rx Albuterol Mdi (or & Nicu Only) 2 puff IH QID PRN #8.5 gram 04/30/20 Unknown Rx [ProAir HFA Inhaler] Prednisone [predniSONE 10 mg 10 mg PO .TAPER #1 tab.ds.pk 04/30/20 Unknown Rx (6-Day Pack, 21 Tabs)] ALBUTEROL NEB's [Proventil 0.083% 2.5 mg IH TID PRN #30 neb 05/02/20 Unknown Rx NEBS] Azithromycin [Zithromax] 500 mg PO QDAY #3 tablet 05/02/20 Unknown Rx Montelukast [Singulair] 10 mg PO QPM #14 tablet 05/02/20 Unknown Rx Nebulizer [Compact Compressor 1 each MC DAILY #1 each 05/02/20 Unknown Rx Nebulizer] guaiFENesin/CODEINE [Robitussin AC] 5 ml PO Q6H PRN #120 ml 05/02/20 Unknown Rx Allergies Allergy/AdvReac Type Severity Reaction Status Date / Time No Known Allergies Allergy Verified 12/06/16 15:32 ED Review of Systems ROS: Stated complaint: Other details as noted in HPI Comment: All other systems reviewed and negative ED Past Medical Hx - Past Medical History Hx Psychiatric Treatment: Yes (Bipolar) Hx Asthma: Yes - Social History Smoking Status: Current Every Day Smoker Substance Use Type: Alcohol, Marijuana - Medications Home Medications: Home Medications Medication Instructions Recorded Confirmed Last Taken Type Albuterol Mdi (or & Nicu Only) 2 puff IH QID PRN #1 inhalation 05/28/17 Unknown Rx [ProAir HFA Inhaler] Azithromycin [Zithromax Z-MARYURI] 250 mg PO DAILY #6 tablet 05/28/17 Unknown Rx predniSONE [Deltasone] 40 mg PO QDAY #5 tab 05/28/17 Unknown Rx Acetaminophen [Acetaminophen TAB] 1,000 mg PO Q6HR PRN #30 tablet 05/13/19 Unknown Rx diphenhydrAMINE [Benadryl CAP] 25 mg PO Q8HR PRN #30 capsule 05/13/19 Unknown Rx Metoclopramide [Reglan TAB] 10 mg PO Q8H PRN #20 tab 06/13/19 Unknown Rx Famotidine [Pepcid] 40 mg PO QHS #30 tablet 01/26/20 Unknown Rx Sucralfate [Carafate] 1 gm PO ACHS 7 Days #21 tablet 01/26/20 Unknown Rx Albuterol Mdi (or & Nicu Only) 2 puff IH QID PRN #8.5 gram 04/30/20 Unknown Rx [ProAir HFA Inhaler] Prednisone [predniSONE 10 mg 10 mg PO .TAPER #1 tab.ds.pk 04/30/20 Unknown Rx (6-Day Pack, 21 Tabs)] ALBUTEROL NEB's [Proventil 0.083% 2.5 mg IH TID PRN #30 neb 05/02/20 Unknown Rx NEBS] Azithromycin [Zithromax] 500 mg PO QDAY #3 tablet 05/02/20 Unknown Rx Montelukast [Singulair] 10 mg PO QPM #14 tablet 05/02/20 Unknown Rx Nebulizer [Compact Compressor 1 each MC DAILY #1 each 05/02/20 Unknown Rx Nebulizer] guaiFENesin/CODEINE [Robitussin AC] 5 ml PO Q6H PRN #120 ml 05/02/20 Unknown Rx ED Physical Exam - General General appearance: alert, in no apparent distress - Head Head exam: Present: atraumatic, normocephalic - Eye Eye exam: Present: normal appearance, PERRL, EOMI Pupils: Present: normal accommodation - ENT ENT exam: Present: mucous membranes moist, TM's normal bilaterally - Neck Neck exam: Present: normal inspection, full ROM - Respiratory Respiratory exam: Present: normal lung sounds bilaterally, respiratory distress, wheezes, rhonchi. Absent: accessory muscle use, decreased breath sounds - Cardiovascular Cardiovascular Exam: Present: regular rate, normal rhythm. Absent: systolic murmur, diastolic murmur, rubs, gallop - GI/Abdominal GI/Abdominal exam: Present: soft, normal bowel sounds - Extremities Exam Extremities exam: Present: normal inspection - Back Exam Back exam: Present: normal inspection - Neurological Exam Neurological exam: Present: alert, oriented X3 - Psychiatric Psychiatric exam: Present: normal affect, normal mood - Skin Skin exam: Present: warm, dry, intact, normal color. Absent: rash ED Medical Decision Making - Radiology Data Radiology results: report reviewed [facility] [address] [place] [address] XRay Report Signed Patient: MICHAEL DIGGS MR#: [id number] : 1990 Acct:[id number] Age/Sex: 30 / F ADM Date: 05/02/20 Loc: ED Attending Dr: Ordering Physician: NICK FARIA Date of Service: 05/02/20 Procedure(s): XR chest routine 2V Accession Number(s): [id number] cc: NICK FARIA Fluoro Time In Minutes: CHEST 2 VIEWS INDICATION / CLINICAL INFORMATION: SOB. COMPARISON: Chest radiograph dated 04/30/2020. FINDINGS: SUPPORT DEVICES: None. HEART / MEDIASTINUM: No significant abnormality. LUNGS / PLEURA: No significant pulmonary or pleural abnormality. No pneumothorax. ADDITIONAL FINDINGS: No significant additional findings. IMPRESSION: No acute cardiopulmonary abnormality. Signer Name: Mo Armenta MD Signed: 05/02/2020 9:38 PM Workstation Name: [id number] Transcribed By: SS Dictated By: MO ARMENTA Electronically Authenticated By: MO ARMENTA Signed Date/Time: 05/02/202137 DD/ 37 TD/TT: [address] [address] XRay Report Signed Patient: MICHAEL DIGGS MR#: [id number] : 1990 Acct:[id number] Age/Sex: 30 / F ADM Date: 05/02/20 Loc: ED Attending Dr: Ordering Physician: NICK FARIA Date of Service: 05/02/20 Procedure(s): XR chest routine 2V Accession Number(s): [id number] cc: NICK FARIA Fluoro Time In Minutes: CHEST 2 VIEWS INDICATION / CLINICAL INFORMATION: SOB. COMPARISON: Chest radiograph dated 04/30/2020. FINDINGS: SUPPORT DEVICES: None. HEART / MEDIASTINUM: No significant abnormality. LUNGS / PLEURA: No significant pulmonary or pleural abnormality. No pneumothora x. ADDITIONAL FINDINGS: No significant additional findings. IMPRESSION: No acute cardiopulmonary abnormality. Signer Name: Mo Armenta MD Signed: 05/02/2020 9:38 PM Workstation Name: [id number] Transcribed By: SS Dictated By: MO ARMENTA Electronically Authenticated By: MO ARMENTA Signed Date/Time: 05/02/202137 DD/ 37 TD/TT: - Medical Decision Making This patient presents with acute cough, most consistent with asthma/bronchitis. Differential diagnosis includes pneumonia, hyperreactive airway disease, allergic reaction, asthma, bronchitis. Presentation not consistent with acute bacterial pneumonia, influenza, asthma, transient airway hyperresponsiveness. Presentation not consistent with chronic causes of cough (including GERD, asthma, postnasal discharge, medication side effect, CHF, lung cancer or mass). No altered mental status, saddle respirations, belly breathing or other signs of impending ventilatory failure. No intubations or recent admissions to the hospital for asthma. Unlikely pneumonia, CHF, COPD, GERD Workup Review include a chest x-ray which was normal she also received steroids and albuterol Therapies: Prednisone 50 mg PO. Albuterol nebulizer Reassessment: Patient improved with albuterol and ipratropium in less than 3 hours. Disposition: Discharge home with return precautions. Advised to follow up with primary care physician within next 24-48 hours. Aside from this acute exacerbation patient has been well controlled on baseline home regimen. Rx short steroid course, albuterol, Singulair, Flovent Plan: , supportive care, reassess Critical care attestation.: If time is entered above; I have spent that time in minutes in the direct care of this critically ill patient, excluding procedure time. ED Disposition Clinical Impression: Asthma exacerbation, Bronchitis Disposition: - TO HOME OR SELFCARE Is pt being admited?: No Does the pt Need Aspirin: No Condition: Stable Instructions: Asthma (ED), Chronic Bronchitis (ED) Prescriptions: Nebulizer [Compact Compressor Nebulizer] 1 each MC DAILY #1 each ALBUTEROL NEB's [Proventil 0.083% NEBS] 2.5 mg IH TID PRN #30 neb PRN Reason: Wheezing guaiFENesin/CODEINE [Robitussin AC] 5 ml PO Q6H PRN #120 ml PRN Reason: Cough Montelukast [Singulair] 10 mg PO QPM #14 tablet Azithromycin [Zithromax] 500 mg PO QDAY #3 tablet Referrals: PRIMARY CARE,MD [Primary Care Provider] - 3-5 Days [facility], [facility] [Other] - 3-5 Days
--- NOTE | 2020-05-02 21:43 | XRay Report ---
CHEST 2 VIEWS INDICATION / CLINICAL INFORMATION: SOB. COMPARISON: Chest radiograph dated 04/30/2020. FINDINGS: SUPPORT DEVICES: None. HEART / MEDIASTINUM: No significant abnormality. LUNGS / PLEURA: No significant pulmonary or pleural abnormality. No pneumothorax. ADDITIONAL FINDINGS: No significant additional findings. IMPRESSION: No acute cardiopulmonary abnormality. Signer Name: David Armenta MD Signed: 05/02/2020 9:38 PM Workstation Name: [id number]
== END 2020-05-02 22:15 | disposition home or self-care (01) ==
LOC: ED 14:40
DX: J44.9 Chronic obstructive pulmonary disease, unspecified (principal)
CPT/HCPCS: 71046; 99283; J7512

== ENCOUNTER 2020-07-31 03:06 | Emergency (ER) | payer SELFPAY ==
[2020-07-31] MEDS ORDERED: KETOROLAC 30 MG/1 ML INJ IV ONE (03:10)
[2020-07-31] MEDS ORDERED: FAMOTIDINE 20 MG/2 ML INJ IV ONE (03:10)
[2020-07-31] MEDS ORDERED: SODIUM CHLORIDE 0.9% 1000 ML 1,000 ML IV ONE (03:10)
[2020-07-31] MEDS ORDERED: ONDANSETRON 4 MG/2 ML INJ IV ONE (03:10)
--- NOTE | 2020-07-31 03:12 | Emergency Department Report ---
Blank Doc - Documentation Documentation: 30-year-old female 1 day removed from binge drinking at night and woke up with a hangover that developed nausea vomiting and severe abdominal pain primarily left lower quadrant resembling that of some gastritis that she had an previous history. No hemoptysis no hematemesis no hematochezia. This initial assessment/diagnostic orders/clinical plan/treatment(s) is/are subject to change based on patients health status, clinical progression and re- assessment by fellow clinical providers in the ED. Further treatment and workup at subsequent clinical providers discretion. Patient/guardian urged not to elope from the ED as their condition may be serious if not clinically assessed and managed. Initial orders include: Labs, urinalysis CT scan to evaluate the severity of this abdominal pain to the left lower quadrant
[2020-07-31 03:34] LABS: Hematocrit 39.7 % (30.3-42.9); Hemoglobin 13.2 gm/dl (10.1-14.3); Mean Corpuscular HGB Conc 33 % (30-34); Mean Corpuscular Volume 89 fl (79-97); Platelet Count 286 K/mm3 (140-440); Red Blood Count 4.45 M/mm3 (3.65-5.03); Red Cell Distribution Width 14.3 % (13.2-15.2)
[2020-07-31 03:54] LABS: Alanine Aminotransferase 26 units/L (7-56); BUN/Creatinine Ratio 11; Blood Urea Nitrogen 10 mg/dL (7-17); Calcium 9.6 mg/dL (8.4-10.2); Hemolysis Index 12
[2020-07-31] MEDS ORDERED: HALOPERIDOL LACTATE 5 MG/1 ML INJ IM ONE (03:55)
[2020-07-31 03:56] LABS: Bilirubin,Direct < 0.2 mg/dL (0-0.2)
--- NOTE | 2020-07-31 04:19 | Emergency Department Report ---
ED Abdominal Pain HPI - General Chief Complaint: Abdominal Pain Stated Complaint: EMESIS/DIARRHEA Time Seen by Provider: 07/31/20 03:26 Source: patient Mode of arrival: Ambulatory Limitations: No Limitations - History of Present Illness Initial Comments: 30-year-old female, reports history of cyclical vomiting syndrome, presents to ED with abdominal pain, nausea, and vomiting x1 day. Patient states pain is on left lower quadrant of her abdomen, which is where her pain usually occurs. Patient states she has been told that her symptoms could be secondary to marijuana use, however, patient admits that she still uses marijuana. Patient also reports some binge the night before she awoke with a hangover. Symptoms started after drinking. Patient denies any fever, cough, shortness of breath, known exposure to anyone who is tested positive for COVID-19. MD Complaint: abdominal pain -: days(s) (1) Location: LLQ Radiation: none Migration to: no migration Severity scale (0 -10): 8 Quality: cramping Consistency: constant Improves With: nothing Worsens With: nothing Associated Symptoms: denies: fever - Related Data Previous Rx's Medication Instructions Recorded Last Taken Type Albuterol Mdi (or & Nicu Only) 2 puff IH QID PRN #1 inhalation 05/28/17 Unknown Rx [ProAir HFA Inhaler] Azithromycin [Zithromax Z-MARYURI] 250 mg PO DAILY #6 tablet 05/28/17 Unknown Rx predniSONE [Deltasone] 40 mg PO QDAY #5 tab 05/28/17 Unknown Rx Acetaminophen [Acetaminophen TAB] 1,000 mg PO Q6HR PRN #30 tablet 05/13/19 Unknown Rx diphenhydrAMINE [Benadryl CAP] 25 mg PO Q8HR PRN #30 capsule 05/13/19 Unknown Rx Metoclopramide [Reglan TAB] 10 mg PO Q8H PRN #20 tab 06/13/19 Unknown Rx Famotidine [Pepcid] 40 mg PO QHS #30 tablet 01/26/20 Unknown Rx Sucralfate [Carafate] 1 gm PO ACHS 7 Days #21 tablet 01/26/20 Unknown Rx Albuterol Mdi (or & Nicu Only) 2 puff IH QID PRN #8.5 gram 04/30/20 Unknown Rx [ProAir HFA Inhaler] Prednisone [predniSONE 10 mg 10 mg PO .TAPER #1 tab.ds.pk 04/30/20 Unknown Rx (6-Day Pack, 21 Tabs)] ALBUTEROL NEB's [Proventil 0.083% 2.5 mg IH TID PRN #30 neb 05/02/20 Unknown Rx NEBS] Azithromycin [Zithromax] 500 mg PO QDAY #3 tablet 05/02/20 Unknown Rx Montelukast [Singulair] 10 mg PO QPM #14 tablet 05/02/20 Unknown Rx Nebulizer [Compact Compressor 1 each MC DAILY #1 each 05/02/20 Unknown Rx Nebulizer] guaiFENesin/CODEINE [Robitussin AC] 5 ml PO Q6H PRN #120 ml 05/02/20 Unknown Rx Dicyclomine [Bentyl] 20 mg PO QID PRN #20 tablet 07/31/20 Unknown Rx Ondansetron [Zofran Odt] 4 mg PO Q8HR PRN #20 tab.rapdis 07/31/20 Unknown Rx Allergies Allergy/AdvReac Type Severity Reaction Status Date / Time No Known Allergies Allergy Verified 12/06/16 15:32 ED Review of Systems ROS: Stated complaint: EMESIS/DIARRHEA Other details as noted in HPI Comment: All other systems reviewed and negative Constitutional: denies: chills, fever Gastrointestinal: as per HPI ED Past Medical Hx - Past Medical History Previous Medical History?: Yes Hx Psychiatric Treatment: Yes (Bipolar) Hx Asthma: Yes - Surgical History Past Surgical History?: No - Social History Smoking Status: Former Smoker Substance Use Type: Alcohol, Marijuana - Medications Home Medications: Home Medications Medication Instructions Recorded Confirmed Last Taken Type Albuterol Mdi (or & Nicu Only) 2 puff IH QID PRN #1 inhalation 05/28/17 Unknown Rx [ProAir HFA Inhaler] Azithromycin [Zithromax Z-MARYURI] 250 mg PO DAILY #6 tablet 05/28/17 Unknown Rx predniSONE [Deltasone] 40 mg PO QDAY #5 tab 05/28/17 Unknown Rx Acetaminophen [Acetaminophen TAB] 1,000 mg PO Q6HR PRN #30 tablet 05/13/19 Unknown Rx diphenhydrAMINE [Benadryl CAP] 25 mg PO Q8HR PRN #30 capsule 05/13/19 Unknown Rx Metoclopramide [Reglan TAB] 10 mg PO Q8H PRN #20 tab 06/13/19 Unknown Rx Famotidine [Pepcid] 40 mg PO QHS #30 tablet 01/26/20 Unknown Rx Sucralfate [Carafate] 1 gm PO ACHS 7 Days #21 tablet 01/26/20 Unknown Rx Albuterol Mdi (or & Nicu Only) 2 puff IH QID PRN #8.5 gram 04/30/20 Unknown Rx [ProAir HFA Inhaler] Prednisone [predniSONE 10 mg 10 mg PO .TAPER #1 tab.ds.pk 04/30/20 Unknown Rx (6-Day Pack, 21 Tabs)] ALBUTEROL NEB's [Proventil 0.083% 2.5 mg IH TID PRN #30 neb 05/02/20 Unknown Rx NEBS] Azithromycin [Zithromax] 500 mg PO QDAY #3 tablet 05/02/20 Unknown Rx Montelukast [Singulair] 10 mg PO QPM #14 tablet 05/02/20 Unknown Rx Nebulizer [Compact Compressor 1 each MC DAILY #1 each 05/02/20 Unknown Rx Nebulizer] guaiFENesin/CODEINE [Robitussin AC] 5 ml PO Q6H PRN #120 ml 05/02/20 Unknown Rx Dicyclomine [Bentyl] 20 mg PO QID PRN #20 tablet 07/31/20 Unknown Rx Ondansetron [Zofran Odt] 4 mg PO Q8HR PRN #20 tab.rapdis 07/31/20 Unknown Rx ED Physical Exam - General Limitations: No Limitations General appearance: alert, in no apparent distress - Head Head exam: Present: atraumatic, normocephalic - Eye Eye exam: Present: normal appearance - ENT ENT exam: Present: mucous membranes moist - Neck Neck exam: Present: normal inspection - Respiratory Respiratory exam: Present: normal lung sounds bilaterally. Absent: respiratory distress - Cardiovascular Cardiovascular Exam: Present: regular rate, normal rhythm - GI/Abdominal GI/Abdominal exam: Present: soft, tenderness (Mild left lower quadrant). Absent: distended - Extremities Exam Extremities exam: Present: normal inspection - Neurological Exam Neurological exam: Present: alert, oriented X3 - Psychiatric Psychiatric exam: Present: normal affect, normal mood - Skin Skin exam: Present: warm, dry, intact, normal color ED Course Vital Signs 07/31/20 07/31/20 07/31/20 03:09 03:30 04:45 Temperature 97.5 F L Pulse Rate 72 58 L Respiratory 17 26 H 21 Rate Blood Pressure 142/92 140/92 O2 Sat by Pulse 100 100 Oximetry 07/31/20 05:15 Temperature Pulse Rate 84 Respiratory 15 Rate Blood Pressure 141/102 O2 Sat by Pulse 100 Oximetry ED Medical Decision Making - Lab Data Result diagrams: 07/31/20 03:22 07/31/20 03:22 - Medical Decision Making 30-year-old female presents to ED with abdominal pain and vomiting. Patient states symptoms are the same as her usual exacerbation of her cyclical vomiting syndrome. CT abdomen pelvis is unremarkable for any acute findings. Patient has been given IV fluids and medication and is currently feeling much better at this time. Will discharge home. Outpatient follow-up advised with GI. Return precautions given. - Differential Diagnosis Cyclical vomiting, bowel obstruction, Critical care attestation.: If time is entered above; I have spent that time in minutes in the direct care of this critically ill patient, excluding procedure time. ED Disposition Clinical Impression: Abdominal pain, Nausea & vomiting Disposition: DC-01 TO HOME OR SELFCARE Is pt being admited?: No Condition: Stable Instructions: Nausea and Vomiting, Adult, [id number], Abdominal Pain, Adult, [id number], Abdominal Pain (ED) Prescriptions: Dicyclomine [Bentyl] 20 mg PO QID PRN #20 tablet PRN Reason: abdominal pain Ondansetron [Zofran Odt] 4 mg PO Q8HR PRN #20 tab.rapdis PRN Reason: Vomiting Referrals: SAEED GALLO MD [Primary Care Provider] - 3-5 Days [facility] [Provider Group] - 3-5 Days
--- NOTE | 2020-07-31 04:39 | Cat Scan Report ---
CT ABDOMEN AND PELVIS WITH CONTRAST INDICATION / CLINICAL INFORMATION: Abdominal Pain. TECHNIQUE: Axial CT images were obtained through the abdomen and pelvis after 100 cc of Omnipaque [address] scans at this location are performed using CT dose reduction for ALARA by means of automat ed exposure control. COMPARISON: CT scan dated 01/26/2020 FINDINGS: LOWER CHEST: No significant abnormality. LIVER: No significant abnormality. GALLBLADDER: No significant abnormality. BILE DUCTS: No significant abnormality. PANCREAS: No significant abnormality. SPLEEN: No significant abnormality. ADRENALS: No significant abnormality. RIGHT KIDNEY and URETER: No significant abnormality. LEFT KIDNEY and URETER: No significant abnormality. STOMACH and SMALL BOWEL: No significant abnormality. COLON: No significant abnormality. APPENDIX: No significant abnormality. PERITONEUM: No free fluid. No free air. No fluid collection. LYMPH NODES: No significant adenopathy. AORTA and ARTERIES: No significant abnormality. IVC and VEINS: No significant abnormality. URINARY BLADDER: No significant abnormality. REPRODUCTIVE ORGANS: No significant abnormality. ADDITIONAL FINDINGS: None. SKELETAL SYSTEM: No acute abnormality. IMPRESSION: 1. No acute abnormality. Signer Name: Ibrahima Shabazz MD Signed: 07/31/2020 4:34 AM Workstation Name: [id number]
[2020-07-31 04:52] LABS: Bilirubin,Urine NEG (Negative); Blood,Urine NEG (Negative); Color,Urine Yellow (Yellow); Mucus,Urine FEW /HPF; Protein,Urine <15 mg/dL mg/dL (Negative); Urobilinogen,Urine < 2.0 mg/dL (<2.0); WBC,Urine < 1.0 /HPF (0.0-6.0)
[2020-07-31] MEDS ORDERED: DICYCLOMINE 20 MG TAB PO ONE (05:10)
[2020-07-31 05:20] VITALS: BP 141/102
[2020-07-31 06:49] LABS: Anisocytosis 1+; Platelet Estimate Consistent w Auto; Total Cells Counted 100
== END 2020-07-31 05:29 | disposition home or self-care (01) ==
LOC: ED 03:06
DX: R11.2 Nausea with vomiting, unspecified (principal); R10.9 Unspecified abdominal pain; F31.9 Bipolar disorder, unspecified; J45.909 Unspecified asthma, uncomplicated; F12.90 Cannabis use, unspecified, uncomplicated; Z79.899 Other long term (current) drug therapy; Z87.891 Personal history of nicotine dependence
CPT/HCPCS: 36415; 74177; 80048; 80076; 81001; 83690; 84703; 85007; 85025; 96361; 96372; 96374; 96375; 99284; J1630; J1885; J2405; J7030; Q9967

== ENCOUNTER 2021-04-13 19:47 | Emergency (ER) | payer SELFPAY ==
[2021-04-13] MEDS ORDERED: diphenhydrAMINE 50 MG/ML VIAL IV ONE ×2 (21:20→23:47)
[2021-04-13] MEDS ORDERED: SODIUM CHLORIDE 0.9% 1000 ML 1,000 ML IV ONE (21:20)
[2021-04-13] MEDS ORDERED: HALOPERIDOL LACTATE 5 MG/1 ML INJ IV ONE ×2 (21:20→23:47)
--- NOTE | 2021-04-13 21:27 | Emergency Department Report ---
ED General Adult HPI - General Chief complaint: Nausea/Vomiting/Diarrhea Stated complaint: EMESIS PER THC INTAKE Time Seen by Provider: 04/13/21 20:56 Source: patient Mode of arrival: Ambulatory Limitations: No Limitations - History of Present Illness Initial comments: 31-year-old female patient with history of cannabis hyperemesis syndrome presents to the emergency department with complaints of abdominal pain, nausea, vomiting, and diarrhea starting 2 days ago after using THC. Patient states symptoms are consistent with prior cannabis hyperemesis flareups. Patient was evaluated at another local emergency department within the last 24 hours for the same symptoms. She underwent ultrasound and CT scan, both of which returned normal. She was treated with IV Zofran and reportedly discharged home with no prescriptions. Her symptoms have failed to improve. Denies fever, vaginal bleeding, constipation, black/bloody stools, urinary symptoms. Denies all other complaints at this time - Related Data Previous Rx's Medication Instructions Recorded Last Taken Type Albuterol Mdi (or & Nicu Only) 2 puff IH QID PRN #1 inhalation 05/28/17 Unknown Rx [ProAir HFA Inhaler] Azithromycin [Zithromax Z-MARYURI] 250 mg PO DAILY #6 tablet 05/28/17 Unknown Rx predniSONE [Deltasone] 40 mg PO QDAY #5 tab 05/28/17 Unknown Rx Acetaminophen [Acetaminophen TAB] 1,000 mg PO Q6HR PRN #30 tablet 05/13/19 Unknown Rx diphenhydrAMINE [Benadryl CAP] 25 mg PO Q8HR PRN #30 capsule 05/13/19 Unknown Rx Metoclopramide [Reglan TAB] 10 mg PO Q8H PRN #20 tab 06/13/19 Unknown Rx Famotidine [Pepcid] 40 mg PO QHS #30 tablet 01/26/20 Unknown Rx Sucralfate [Carafate] 1 gm PO ACHS 7 Days #21 tablet 01/26/20 Unknown Rx Albuterol Mdi (or & Nicu Only) 2 puff IH QID PRN #8.5 gram 04/30/20 Unknown Rx [ProAir HFA Inhaler] Prednisone [predniSONE 10 mg 10 mg PO .TAPER #1 tab.ds.pk 04/30/20 Unknown Rx (6-Day Pack, 21 Tabs)] ALBUTEROL NEB's [Proventil 0.083% 2.5 mg IH TID PRN #30 neb 05/02/20 Unknown Rx NEBS] Azithromycin [Zithromax] 500 mg PO QDAY #3 tablet 05/02/20 Unknown Rx Montelukast [Singulair] 10 mg PO QPM #14 tablet 05/02/20 Unknown Rx Nebulizer [Compact Compressor 1 each MC DAILY #1 each 05/02/20 Unknown Rx Nebulizer] guaiFENesin/CODEINE [Robitussin AC] 5 ml PO Q6H PRN #120 ml 05/02/20 Unknown Rx Dicyclomine [Bentyl] 20 mg PO QID PRN #20 tablet 07/31/20 Unknown Rx Ondansetron [Zofran Odt] 4 mg PO Q8HR PRN #20 tab.rapdis 07/31/20 Unknown Rx Ondansetron [Zofran Odt] 4 mg PO Q4H #20 tab.rapdis 04/13/21 Unknown Rx Allergies Allergy/AdvReac Type Severity Reaction Status Date / Time No Known Allergies Allergy Verified 12/06/16 15:32 ED Review of Systems ROS: Stated complaint: EMESIS PER THC INTAKE Other details as noted in HPI Other: GENERAL: Negative for fever, chills, weight change, anorexia, fatigue. ENT: Negative for ear pain, difficulty hearing, sore throat, nasal congestion, epistaxis. CARDIOVASCULAR: Negative for chest pain, palpitations, lower extremity swelling. PULMONARY: Negative for cough, dyspnea, wheezing, orthopnea, cyanosis. GASTROINTESTINAL: Positive for abdominal pain, nausea, vomiting, diarrhea. MUSCULOSKELETAL: Negative for joint pain, joint swelling, myalgias, back pain, neck pain. NEUROLOGICAL: Negative for headache, seizure, syncope, paresthesias, weakness. INTEGUMENTARY: Negative for erythema, rash, diaphoresis, laceration, ecchymosis. HEMATOLOGICAL: Negative for hemoptysis, hematemesis, hematochezia, hematuria. PSYCHIATRIC: Negative for hallucinations, suicidal ideation, homicidal ideation, anxiety, depression. ED Past Medical Hx - Past Medical History Hx Hypertension: Yes Hx Psychiatric Treatment: Yes (Bipolar) Hx Asthma: Yes Additional medical history: Cannabis induced emesis - Surgical History Past Surgical History?: No - Social History Smoking Status: Never Smoker Substance Use Type: Marijuana - Medications Home Medications: Home Medications Medication Instructions Recorded Confirmed Last Taken Type Albuterol Mdi (or & Nicu Only) 2 puff IH QID PRN #1 inhalation 05/28/17 Unknown Rx [ProAir HFA Inhaler] Azithromycin [Zithromax Z-MARYURI] 250 mg PO DAILY #6 tablet 05/28/17 Unknown Rx predniSONE [Deltasone] 40 mg PO QDAY #5 tab 05/28/17 Unknown Rx Acetaminophen [Acetaminophen TAB] 1,000 mg PO Q6HR PRN #30 tablet 05/13/19 Unknown Rx diphenhydrAMINE [Benadryl CAP] 25 mg PO Q8HR PRN #30 capsule 05/13/19 Unknown Rx Metoclopramide [Reglan TAB] 10 mg PO Q8H PRN #20 tab 06/13/19 Unknown Rx Famotidine [Pepcid] 40 mg PO QHS #30 tablet 01/26/20 Unknown Rx Sucralfate [Carafate] 1 gm PO ACHS 7 Days #21 tablet 01/26/20 Unknown Rx Albuterol Mdi (or & Nicu Only) 2 puff IH QID PRN #8.5 gram 04/30/20 Unknown Rx [ProAir HFA Inhaler] Prednisone [predniSONE 10 mg 10 mg PO .TAPER #1 tab.ds.pk 04/30/20 Unknown Rx (6-Day Pack, 21 Tabs)] ALBUTEROL NEB's [Proventil 0.083% 2.5 mg IH TID PRN #30 neb 05/02/20 Unknown Rx NEBS] Azithromycin [Zithromax] 500 mg PO QDAY #3 tablet 05/02/20 Unknown Rx Montelukast [Singulair] 10 mg PO QPM #14 tablet 05/02/20 Unknown Rx Nebulizer [Compact Compressor 1 each MC DAILY #1 each 05/02/20 Unknown Rx Nebulizer] guaiFENesin/CODEINE [Robitussin AC] 5 ml PO Q6H PRN #120 ml 05/02/20 Unknown Rx Dicyclomine [Bentyl] 20 mg PO QID PRN #20 tablet 07/31/20 Unknown Rx Ondansetron [Zofran Odt] 4 mg PO Q8HR PRN #20 tab.rapdis 07/31/20 Unknown Rx Ondansetron [Zofran Odt] 4 mg PO Q4H #20 tab.rapdis 04/13/21 Unknown Rx ED Physical Exam - General Limitations: No Limitations - Other Other exam information: General: Awake and alert. No acute distress. Head: Atraumatic, normocephalic. Eyes: EOMI. Pupils are equal and round. Normal sclera and conjunctiva. ENT: Oral mucosa is moist. Normal pharyngeal exam. Neck: Supple. No lymphadenopathy. Pulmonary: No respiratory distress. Clear to auscultation bilaterally. Cardiac: Regular rate and rhythm. Pulses are palpable and equal bilaterally. No lower extremity cyanosis or edema. Skin: Warm and dry. No rashes. Abdomen: Soft, non-protuberant. Left upper and left lower quadrant tenderness without guarding, rigidity, or rebound. Bowel sounds are normal. No organomegaly or masses noted. Back: Normal alignment. No CVA tenderness. Extremities: Symmetrical. Full range of motion intact. Neurological: Alert and oriented, appropriately interactive, no focal deficits. Psych: Cooperative. Appropriate mood and affect. Speech is evenly metered. Thoughts are logically construed. ED Course Vital Signs 04/13/21 04/13/21 20:37 23:14 Pulse Rate 79 81 Respiratory 20 18 Rate Blood Pressure 151/95 163/96 O2 Sat by Pulse 93 98 Oximetry ED Medical Decision Making - Lab Data Result diagrams: 04/13/21 21:27 04/13/21 21:27 - Medical Decision Making Differential diagnosis including but not limited to: dehydration, electrolyte abnormality, hypoglycemia, toxic ingestion, substance withdrawal, On reevaluation, patient remains stable. Repeat abdominal exam is benign. No further vomiting in the emergency department. Tolerated PO challenge. Labs show mild dehydration. Given IV fluids. test is negative. No clinical indication for repeat imaging on an emergent basis at this time. History and exam findings consistent with cannabis hyperemesis syndrome. Patie nt will be discharged home with appropriate symptomatic treatment and referred to primary care provider for close outpatient follow-up. Emphasized the importance of refraining from marijuana use. Patient expressed understanding and is agreeable to plan of care. Dietary modifications discussed. Strict return precautions provided. Repeat exam is unremarkable and benign. History, exam, diagnostic testing, and current condition do not suggest worrisome pathology to warrant further testing, continued ED treatment, admission, or surgical evaluation at this point. Given the low probability of a significant medical illness, it would be more likely to result in harm than benefit to perform further testing at this stage. Discussed findings, presumptive diagnosis, need for follow-up and specific signs/symptoms that should prompt immediate return to the emergency department. Instructions were explained in detail to the patient in addition to giving written discharge information. Patient expressed understanding and was given the opportunity to ask questions, all of which were satisfactorily answered prior to discharge home. Critical care attestation.: If time is entered above; I have spent that time in minutes in the direct care of this critically ill patient, excluding procedure time. ED Disposition Clinical Impression: History of cannabis abuse, Mild dehydration, Nonspecific abdominal pain Disposition: HOME / SELF CARE / HOMELESS Is pt being admited?: No Does the pt Need Aspirin: No Condition: Stable Instructions: Cannabinoid Hyperemesis Syndrome Additional Instructions: Labs are within normal limits. Take Zofran as directed for nausea/vomiting. Rest. Drink plenty of fluids. You must discontinue using marijuana. Symptoms will persist and may even worsen if you continue to use marijuana. Follow-up with primary care provider this week. Call Friday to schedule an appointment. See referral information below. Return to the emergency department immediately for new or worsening symptoms. Specifically, return to the emergency department immediately for fever, worsening pain, dehydration, black/bloody stools, abnormal vaginal bleeding, or any other concerns. Prescriptions: Ondansetron [Zofran Odt] 4 mg PO Q4H #20 tab.[email or web address] Referrals: FEDERICO CLARK MD [Staff Physician] - 3-5 Days [facility] [Provider Group] - 3-5 Days Time of Disposition: 23:32
[2021-04-13 22:18] LABS: Basophils % (Auto) 0.5 % (0.0-1.8); Hematocrit 38.6 % (30.3-42.9); Lymphocytes # (Auto) 1.4 K/mm3 (1.2-5.4); Lymphocytes % (Auto) 16.9 % (13.4-35.0); Mean Corpuscular HGB Conc 34 % (30-34); Mean Corpuscular Volume 90 fl (79-97); Monocytes # (Auto) 0.7 K/mm3 (0.0-0.8); Monocytes % (Auto) 8.5 % (0.0-7.3); Platelet Count 238 K/mm3 (140-440); Red Cell Distribution Width 13.3 % (13.2-15.2)
[2021-04-13 22:36] LABS: Alanine Aminotransferase 19 units/L (7-56); Albumin 4.8 g/dL (3.9-5); Blood Urea Nitrogen 10 mg/dL (7-17); Calcium 9.6 mg/dL (8.4-10.2); Hemolysis Index 12
[2021-04-13 22:50] LABS: BUN/Creatinine Ratio 14
[2021-04-14 01:44] VITALS: BP 119/78
== END 2021-04-14 01:45 | disposition home or self-care (01) ==
LOC: ED 19:47
DX: R10.32 Left lower quadrant pain (principal); R10.12 Left upper quadrant pain; E86.0 Dehydration; F12.10 Cannabis abuse, uncomplicated; F31.9 Bipolar disorder, unspecified; J45.909 Unspecified asthma, uncomplicated; I10 Essential (primary) hypertension
CPT/HCPCS: 36415; 80053; 83690; 83735; 84703; 85025; 96361; 96374; 96375; 99283; J1200; J1630; J7030; 80320; G0480

== ENCOUNTER 2021-04-14 13:45 | Emergency (ER) | payer SELFPAY ==
[2021-04-14] MEDS ORDERED: fentaNYL 100 MCG/2 ML INJ IV ONE (14:44)
[2021-04-14] MEDS ORDERED: SODIUM CHLORIDE 0.9% 1000 ML 1,000 ML IV ONE (14:44)
[2021-04-14] MEDS ORDERED: ONDANSETRON 4 MG/2 ML INJ IV ONE (14:44)
--- NOTE | 2021-04-14 14:52 | Emergency Department Report ---
HPI - General Chief Complaint: Abdominal Pain Time Seen by Provider: 04/14/21 14:26 - HPI HPI: Room 29 The patient is a 31-year-old female present with a chief complaint of nausea vomiting. Patient carries a history of cannabis induced emesis and states she smoked marijuana approximately 2 days ago and since then has had intractable nausea vomiting. Patient complains of left-sided abdominal pain that is constant and gas-like in nature. Patient states her abdominal pain waxes and wanes. Patient denies dysuria, hematuria or vaginal discharge. Patient's LMP was 03/22/2021 and within normal limits. Patient states in addition to the nausea vomiting she has had diarrhea. Patient denies history of fever. Patient states she went to [facility] yesterday and had a CT scan of abdomen pelvis performed as well as a pelvic ultrasound both which were negative. Patient currently gives her pain a score of 8/10. When asked if she received any prescriptions from [facility] upon her discharge the patient replies no ED Past Medical Hx - Past Medical History Previous Medical History?: Yes Hx Hypertension: Yes Hx Psychiatric Treatment: Yes (Bipolar) Hx Asthma: Yes Additional medical history: Cannabis induced emesis - Surgical History Past Surgical History?: No - Family History Family history: no significant - Social History Smoking Status: Former Smoker Substance Use Type: Alcohol (Moderate), Marijuana - Medications Home Medications: Home Medications Medication Instructions Recorded Confirmed Last Taken Type Albuterol Mdi (or & Nicu Only) 2 puff IH QID PRN #1 inhalation 05/28/17 Unknown Rx [ProAir HFA Inhaler] Azithromycin [Zithromax Z-MARYURI] 250 mg PO DAILY #6 tablet 05/28/17 Unknown Rx predniSONE [Deltasone] 40 mg PO QDAY #5 tab 05/28/17 Unknown Rx Acetaminophen [Acetaminophen TAB] 1,000 mg PO Q6HR PRN #30 tablet 05/13/19 Unknown Rx diphenhydrAMINE [Benadryl CAP] 25 mg PO Q8HR PRN #30 capsule 05/13/19 Unknown Rx Metoclopramide [Reglan TAB] 10 mg PO Q8H PRN #20 tab 06/13/19 Unknown Rx Famotidine [Pepcid] 40 mg PO QHS #30 tablet 01/26/20 Unknown Rx Sucralfate [Carafate] 1 gm PO ACHS 7 Days #21 tablet 01/26/20 Unknown Rx Albuterol Mdi (or & Nicu Only) 2 puff IH QID PRN #8.5 gram 04/30/20 Unknown Rx [ProAir HFA Inhaler] Prednisone [predniSONE 10 mg 10 mg PO .TAPER #1 tab.ds.pk 04/30/20 Unknown Rx (6-Day Pack, 21 Tabs)] ALBUTEROL NEB's [Proventil 0.083% 2.5 mg IH TID PRN #30 neb 05/02/20 Unknown Rx NEBS] Azithromycin [Zithromax] 500 mg PO QDAY #3 tablet 05/02/20 Unknown Rx Montelukast [Singulair] 10 mg PO QPM #14 tablet 05/02/20 Unknown Rx Nebulizer [Compact Compressor 1 each MC DAILY #1 each 05/02/20 Unknown Rx Nebulizer] guaiFENesin/CODEINE [Robitussin AC] 5 ml PO Q6H PRN #120 ml 05/02/20 Unknown Rx Dicyclomine [Bentyl] 20 mg PO QID PRN #20 tablet 07/31/20 Unknown Rx Ondansetron [Zofran Odt] 4 mg PO Q8HR PRN #20 tab.rapdis 07/31/20 Unknown Rx Ondansetron [Zofran Odt] 4 mg PO Q4H #20 tab.rapdis 04/13/21 Unknown Rx HYDROcodone/APAP 5-325 [[place] 1 - 2 each PO Q6HR PRN #10 tablet 04/14/21 Unknown Rx 5/325] Promethazine [Phenergan] 25 mg PO Q6HR PRN #20 tab 04/14/21 Unknown Rx Promethazine [Phenergan] 25 mg [place] Q6HR PRN #5 supp.rect 04/14/21 Unknown Rx ED Review of Systems ROS: Stated complaint: CANNABINOID ENDOMETRIOSIS Other details as noted in HPI Constitutional: denies: fever Eyes: denies: eye pain ENT: denies: throat pain Respiratory: no symptoms reported Cardiovascular: denies: chest pain Endocrine: no symptoms reported Gastrointestinal: abdominal pain, nausea, vomiting, diarrhea Genitourinary: denies: dysuria, hematuria, discharge Musculoskeletal: denies: back pain Neurological: denies: headache Physical Exam - Physical Exam Vital Signs: Vital Signs 04/14/21 14:10 Temperature 98.9 F Pulse Rate 74 Respiratory 16 Rate Blood Pressure 168/95 [Left] O2 Sat by Pulse 97 Oximetry Physical Exam: GENERAL: The patient is well-developed well-nourished female sitting in chair not appearing to be in acute distress. [] HEENT: Normocephalic. Atraumatic. Extraocular motions are intact. Patient has moist mucous membranes. NECK: Supple. Trachea midline CHEST/LUNGS: Clear to auscultation. There is no respiratory distress noted. HEART/CARDIOVASCULAR: Regular. There is no tachycardia. There is no gallop rub or murmur. ABDOMEN: Abdomen is soft, with mild discomfort to palpation in the left upper quad. Patient has normal bowel sounds. There is no abdominal distention. SKIN: There is no rash. There is no edema. There is no diaphoresis. NEURO: The patient is awake, alert, and oriented. The patient is cooperative. The patient has no focal neurologic deficits. The patient has normal speech. GCS 15 MUSCULOSKELETAL: There is no evidence of acute injury. ED Course Vital Signs 04/14/21 14:10 Temperature 98.9 F Pulse Rate 74 Respiratory 16 Rate Blood Pressure 168/95 [Left] O2 Sat by Pulse 97 Oximetry - Reevaluation(s) Reevaluation #1: 04/14/21 17:43 Patient tolerating p.o. ED Medical Decision Making - Lab Data Result diagrams: 04/14/21 15:05 04/14/21 15:05 Laboratory Tests 04/14/21 04/14/21 04/14/21 15:05 15:05 15:05 WBC 5.6 RBC 3.96 Hgb 12.1 Hct 35.3 MCV 89 MCH 31 MCHC 34 RDW 13.3 Plt Count 213 Lymph % (Auto) 26.3 [place] % (Auto) 11.1 H Eos % (Auto) 0.2 Baso % (Auto) 0.3 Lymph # (Auto) 1.5 [place] # (Auto) 0.6 Eos # (Auto) 0.0 Baso # (Auto) 0.0 Seg Neutrophils % 62.1 Seg Neutrophils # 3.5 Sodium 136 L Potassium 3.3 L Chloride 100.4 Carbon Dioxide 21 L Anion Gap 18 BUN 13 Creatinine 0.7 Estimated GFR > 60 BUN/Creatinine Ratio 19 Glucose 103 H Calcium 8.6 Total Bilirubin 0.60 AST 18 ALT 16 Alkaline Phosphatase 35 Total Protein 7.1 Albumin 4.2 Albumin/Globulin Ratio 1.4 Lipase 18 HCG, Qual Neg Urine Color Urine Turbidity Urine pH Ur Specific [place] Urine Protein Urine Glucose (UA) Urine Ketones Urine Blood Urine Nitrite Ur Reducing Substances Urine Bilirubin Urine Ictotest Urine Urobilinogen Ur Leukocyte Esterase Urine WBC (Auto) Urine RBC (Auto) U Epithel Cells (Auto) Urine Mucus 04/14/21 16:00 WBC RBC Hgb Hct MCV MCH MCHC RDW Plt Count Lymph % (Auto) [place] % (Auto) Eos % (Auto) Baso % (Auto) Lymph # (Auto) [place] # (Auto) Eos # (Auto) Baso # (Auto) Seg Neutrophils % Seg Neutrophils # Sodium Potassium Chloride Carbon Dioxide Anion Gap BUN Creatinine Estimated GFR BUN/Creatinine Ratio Glucose Calcium Total Bilirubin AST ALT Alkaline Phosphatase Total Protein Albumin Albumin/Globulin Ratio Lipase HCG, Qual Urine Color Yellow Urine Turbidity Clear Urine pH 6.0 Ur Specific [place] 1.029 Urine Protein 30 mg/dl Urine Glucose (UA) Neg Urine Ketones 80 Urine Blood Neg Urine Nitrite Neg Ur Reducing Substances Not Reportable Urine Bilirubin Neg Urine Ictotest Not Reportable Urine Urobilinogen 4.0 Ur Leukocyte Esterase Neg Urine WBC (Auto) 4.0 Urine RBC (Auto) 5.0 U Epithel Cells (Auto) 7.0 Urine Mucus 3+ - Differential Diagnosis Cannabis induced emesis, UTI, pyelonephritis, gastroenteritis Critical care attestation.: If time is entered above; I have spent that time in minutes in the direct care of this critically ill patient, excluding procedure time. ED Disposition Clinical Impression: History of cannabis abuse, Nausea & vomiting Disposition: 01 HOME / SELF CARE / HOMELESS Is pt being admited?: No Does the pt Need Aspirin: No Condition: Stable Instructions: Abdominal Pain (ED), Nausea and Vomiting, Adult, Lpmo-[id number] Additional Instructions: Return to the emergency department should you develop worsening symptoms, inability to tolerate food or liquids, high fever or any other concerns Prescriptions: HYDROcodone/APAP 5-325 [[place] 5/325] 1 - 2 each PO Q6HR PRN #10 tablet PRN Reason: Pain Promethazine [Phenergan] 25 mg PO Q6HR PRN #20 tab PRN Reason: Nausea Promethazine [Phenergan] 25 mg [place] Q6HR PRN #5 supp.rect PRN Reason: Vomiting Referrals: SARAH ALEXIS MD [Staff Physician] - 3-5 Days (Dr. Alexis is a nutrition partner. Please follow-up with him for further evaluation) Time of Disposition: 17:45
[2021-04-14 16:03] LABS: Basophils % (Auto) 0.3 % (0.0-1.8); Eosinophils % (Auto) 0.2 % (0.0-4.3); Hematocrit 35.3 % (30.3-42.9); Hemoglobin 12.1 gm/dl (10.1-14.3); Lymphocytes # (Auto) 1.5 K/mm3 (1.2-5.4); Lymphocytes % (Auto) 26.3 % (13.4-35.0); Mean Corpuscular HGB Conc 34 % (30-34); Mean Corpuscular Volume 89 fl (79-97); Monocytes # (Auto) 0.6 K/mm3 (0.0-0.8); Monocytes % (Auto) 11.1 % (0.0-7.3); Platelet Count 213 K/mm3 (140-440); Red Blood Count 3.96 M/mm3 (3.65-5.03); Red Cell Distribution Width 13.3 % (13.2-15.2)
[2021-04-14 16:07] LABS: Alanine Aminotransferase 16 units/L (7-56); Albumin 4.2 g/dL (3.9-5); Blood Urea Nitrogen 13 mg/dL (7-17); Calcium 8.6 mg/dL (8.4-10.2); Hemolysis Index 2
[2021-04-14 16:11] LABS: BUN/Creatinine Ratio 19
[2021-04-14] MEDS ORDERED: POTASSIUM CHLORIDE ER 20 MEQ TAB PO ONE (16:15)
[2021-04-14 16:28] VITALS: BP 121/83
[2021-04-14 17:29] LABS: Mucus,Urine 3+ /HPF
[2021-04-14 17:33] LABS: Bilirubin,Urine NEG (Negative); Blood,Urine NEG (Negative); Color,Urine Yellow (Yellow)
== END 2021-04-14 21:40 | disposition home or self-care (01) ==
LOC: ED 13:45
DX: R11.2 Nausea with vomiting, unspecified (principal); R10.9 Unspecified abdominal pain; F12.10 Cannabis abuse, uncomplicated; I10 Essential (primary) hypertension; F31.9 Bipolar disorder, unspecified; J45.909 Unspecified asthma, uncomplicated
CPT/HCPCS: 36415; 80053; 81001; 83690; 84703; 85025; 96361; 96374; 96375; 99283; J2405; J3010; J7030

== ENCOUNTER 2021-06-14 20:07 | Emergency (ER) | payer OTHER ==
[2021-06-14 20:27] VITALS: BP 133/82
[2021-06-14] MEDS ORDERED: ACETAMINOPHEN 500 MG TAB PO ONE (22:33)
--- NOTE | 2021-06-14 22:55 | Emergency Department Report ---
ED General Adult HPI - General Chief complaint: Dyspnea/Respdistress Stated complaint: URI Time Seen by Provider: 06/14/21 22:31 Source: patient Mode of arrival: Ambulatory Limitations: No Limitations - History of Present Illness Initial comments: Patient 31-year-old female history of asthma and bronchitis who presents for head congestion sore throat sinus pain and cough that is productive clear white x3 days. Patient denies wheezing denies fevers or chills. However temp noted at 100.4 in triage today. There is no nausea, no vomiting, no dizziness or lightheadedness. As are exacerbated by activity. Symptoms are relieved by nothing tried. Severity scale (0 -10): 0 - Related Data Previous Rx's Medication Instructions Recorded Last Taken Type Albuterol Mdi (or & Nicu Only) 2 puff IH QID PRN #1 inhalation 05/28/17 Unknown Rx [ProAir HFA Inhaler] Azithromycin [Zithromax Z-MARYURI] 250 mg PO DAILY #6 tablet 05/28/17 Unknown Rx predniSONE [Deltasone] 40 mg PO QDAY #5 tab 05/28/17 Unknown Rx Acetaminophen [Acetaminophen TAB] 1,000 mg PO Q6HR PRN #30 tablet 05/13/19 Unknown Rx diphenhydrAMINE [Benadryl CAP] 25 mg PO Q8HR PRN #30 capsule 05/13/19 Unknown Rx Metoclopramide [Reglan TAB] 10 mg PO Q8H PRN #20 tab 06/13/19 Unknown Rx Famotidine [Pepcid] 40 mg PO QHS #30 tablet 01/26/20 Unknown Rx Sucralfate [Carafate] 1 gm PO ACHS 7 Days #21 tablet 01/26/20 Unknown Rx Albuterol Mdi (or & Nicu Only) 2 puff IH QID PRN #8.5 gram 04/30/20 Unknown Rx [ProAir HFA Inhaler] Prednisone [predniSONE 10 mg 10 mg PO .TAPER #1 tab.ds.pk 04/30/20 Unknown Rx (6-Day Pack, 21 Tabs)] ALBUTEROL NEB's [Proventil 0.083% 2.5 mg IH TID PRN #30 neb 05/02/20 Unknown Rx NEBS] Azithromycin [Zithromax] 500 mg PO QDAY #3 tablet 05/02/20 Unknown Rx Montelukast [Singulair] 10 mg PO QPM #14 tablet 05/02/20 Unknown Rx Nebulizer [Compact Compressor 1 each MC DAILY #1 each 05/02/20 Unknown Rx Nebulizer] guaiFENesin/CODEINE [Robitussin AC] 5 ml PO Q6H PRN #120 ml 05/02/20 Unknown Rx Dicyclomine [Bentyl] 20 mg PO QID PRN #20 tablet 07/31/20 Unknown Rx Ondansetron [Zofran Odt] 4 mg PO Q8HR PRN #20 tab.rapdis 07/31/20 Unknown Rx Ondansetron [Zofran Odt] 4 mg PO Q4H #20 tab.rapdis 04/13/21 Unknown Rx HYDROcodone/APAP 5-325 [[place] 1 - 2 each PO Q6HR PRN #10 tablet 04/14/21 Unknown Rx 5/325] Promethazine [Phenergan] 25 mg PO Q6HR PRN #20 tab 04/14/21 Unknown Rx Promethazine [Phenergan] 25 mg NM Q6HR PRN #5 supp.rect 04/14/21 Unknown Rx Albuterol Mdi (or & Nicu Only) 2 puff IH QID PRN #8.5 gram 06/14/21 Unknown Rx [ProAir HFA Inhaler] predniSONE [Deltasone] 40 mg PO QDAY 5 Days #10 tab 06/14/21 Unknown Rx Allergies Allergy/AdvReac Type Severity Reaction Status Date / Time No Known Allergies Allergy Verified 12/06/16 15:32 ED Review of Systems ROS: Stated complaint: URI Other details as noted in HPI Constitutional: malaise. denies: chills, fever Eyes: denies: eye pain, eye discharge, vision change ENT: ear pain, throat pain, congestion Respiratory: cough. denies: shortness of breath, wheezing Cardiovascular: denies: chest pain, palpitations Endocrine: no symptoms reported Gastrointestinal: denies: abdominal pain, nausea, vomiting, diarrhea Genitourinary: denies: urgency, dysuria, discharge Musculoskeletal: as per HPI Skin: denies: rash, lesions Neurological: denies: headache, weakness, paresthesias Psychiatric: denies: anxiety, depression Hematological/Lymphatic: denies: easy bleeding, easy bruising ED Past Medical Hx - Past Medical History Hx Hypertension: Yes Hx Psychiatric Treatment: Yes (Bipolar) Hx Asthma: Yes Additional medical history: Cannabis induced emesis - Social History Smoking Status: Former Smoker Substance Use Type: Alcohol (Moderate), Marijuana - Medications Home Medications: Home Medications Medication Instructions Recorded Confirmed Last Taken Type Albuterol Mdi (or & Nicu Only) 2 puff IH QID PRN #1 inhalation 05/28/17 Unknown Rx [ProAir HFA Inhaler] Azithromycin [Zithromax Z-MARYURI] 250 mg PO DAILY #6 tablet 05/28/17 Unknown Rx predniSONE [Deltasone] 40 mg PO QDAY #5 tab 05/28/17 Unknown Rx Acetaminophen [Acetaminophen TAB] 1,000 mg PO Q6HR PRN #30 tablet 05/13/19 Unknown Rx diphenhydrAMINE [Benadryl CAP] 25 mg PO Q8HR PRN #30 capsule 05/13/19 Unknown Rx Metoclopramide [Reglan TAB] 10 mg PO Q8H PRN #20 tab 06/13/19 Unknown Rx Famotidine [Pepcid] 40 mg PO QHS #30 tablet 01/26/20 Unknown Rx Sucralfate [Carafate] 1 gm PO ACHS 7 Days #21 tablet 01/26/20 Unknown Rx Albuterol Mdi (or & Nicu Only) 2 puff IH QID PRN #8.5 gram 04/30/20 Unknown Rx [ProAir HFA Inhaler] Prednisone [predniSONE 10 mg 10 mg PO .TAPER #1 tab.ds.pk 04/30/20 Unknown Rx (6-Day Pack, 21 Tabs)] ALBUTEROL NEB's [Proventil 0.083% 2.5 mg IH TID PRN #30 neb 05/02/20 Unknown Rx NEBS] Azithromycin [Zithromax] 500 mg PO QDAY #3 tablet 05/02/20 Unknown Rx Montelukast [Singulair] 10 mg PO QPM #14 tablet 05/02/20 Unknown Rx Nebulizer [Compact Compressor 1 each MC DAILY #1 each 05/02/20 Unknown Rx Nebulizer] guaiFENesin/CODEINE [Robitussin AC] 5 ml PO Q6H PRN #120 ml 05/02/20 Unknown Rx Dicyclomine [Bentyl] 20 mg PO QID PRN #20 tablet 07/31/20 Unknown Rx Ondansetron [Zofran Odt] 4 mg PO Q8HR PRN #20 tab.rapdis 07/31/20 Unknown Rx Ondansetron [Zofran Odt] 4 mg PO Q4H #20 tab.rapdis 04/13/21 Unknown Rx HYDROcodone/APAP 5-325 [[place] 1 - 2 each PO Q6HR PRN #10 tablet 04/14/21 Unknown Rx 5/325] Promethazine [Phenergan] 25 mg PO Q6HR PRN #20 tab 04/14/21 Unknown Rx Promethazine [Phenergan] 25 mg NM Q6HR PRN #5 supp.rect 04/14/21 Unknown Rx Albuterol Mdi (or & Nicu Only) 2 puff IH QID PRN #8.5 gram 06/14/21 Unknown Rx [ProAir HFA Inhaler] predniSONE [Deltasone] 40 mg PO QDAY 5 Days #10 tab 06/14/21 Unknown Rx ED Physical Exam - General Limitations: No Limitations General appearance: alert, in no apparent distress - Head Head exam: Present: atraumatic, normocephalic - Eye Eye exam: Present: normal appearance, PERRL, EOMI Pupils: Present: normal accommodation - ENT ENT exam: Present: normal orophraynx, mucous membranes moist, TM's normal bilaterally, normal external ear exam, other (Bilateral turbinates boggy clear rhinorrhea) - Neck Neck exam: Present: normal inspection, full ROM. Absent: tenderness, meningismus, lymphadenopathy, thyromegaly - Respiratory Respiratory exam: Present: normal lung sounds bilaterally. Absent: respiratory distress, wheezes, stridor, chest wall tenderness - Cardiovascular Cardiovascular Exam: Present: regular rate, normal rhythm, normal heart sounds. Absent: systolic murmur, diastolic murmur, rubs, gallop - GI/Abdominal GI/Abdominal exam: Present: soft, normal bowel sounds. Absent: distended, tenderness, bruit, hernia - Rectal Rectal exam: Present: deferred - Extremities Exam Extremities exam: Present: normal inspection, full ROM. Absent: tenderness - Back Exam Back exam: Present: normal inspection, full ROM. Absent: CVA tenderness (R), CVA tenderness (L) - Neurological Exam Neurological exam: Present: alert, oriented X3, CN II-XII intact, normal gait - Psychiatric Psychiatric exam: Present: normal affect, normal mood - Skin Skin exam: Present: warm, dry, intact, normal color. Absent: rash ED Course Vital Signs 06/14/21 20:24 Temperature 100.4 F H Pulse Rate 98 H Respiratory 18 Rate Blood Pressure 133/82 [Left] O2 Sat by Pulse 100 Oximetry ED Medical Decision Making - Radiology Data Radiology results: report reviewed, image reviewed XR chest routine 2V INDICATION / CLINICAL INFORMATION: sob. COMPARISON: 05/02/2020. FINDINGS: SUPPORT DEVICES: None. HEART /PULMONARY VASCULATURE: No significant abnormality. LUNGS / PLEURA: No significant pulmonary or pleural abnormality. No pneumothorax. ADDITIONAL FINDINGS: No significant additional findings. IMPRESSION: 1. No acute findings. Signer Name: Robert Vargas MD Signed: 06/14/2021 10:49 PM Workstation Name: [id number] Transcribed By: DENZEL Dictated By: ORBERT VARGAS MD Electronically Authenticated By: ROBERT VARGAS MD Signed Date/Time: 06/14/21 2189 - Medical Decision Making Chest x-ray normal no infiltrates no opacities, plan DC to home, diagnosis URI, take medications as prescribed, follow-up with primary care doctor in 2 to 3 days. Return to emergency department should symptoms worsen. Critical care attestation.: If time is entered above; I have spent that time in minutes in the direct care of this critically ill patient, excluding procedure time. ED Disposition Clinical Impression: URI (upper respiratory infection) Qualifiers: URI type: unspecified viral URI Qualified Code(s): J06.9 - Acute upper respiratory infection, unspecified Disposition: 01 HOME / SELF CARE / HOMELESS Is pt being admited?: No Does the pt Need Aspirin: No Condition: Stable Instructions: Upper Respiratory Infection, Adult, [id number] Additional Instructions: Take medications as prescribed, follow-up with your doctor in 2 to 3 days. Return to emergency department should symptoms worsen. Prescriptions: predniSONE [Deltasone] 40 mg PO QDAY 5 Days #10 tab Albuterol Mdi (or & Nicu Only) [ProAir HFA Inhaler] 2 puff IH QID PRN #8.5 gram PRN Reason: Shortness Of Breath Referrals: PRIMARY CARE, [Primary Care Provider] - 3-5 Days MARJORIE MALONEY MD [Staff Physician] - 3-5 Days Forms: Work/School Release Form(ED) Time of Disposition: 23:34
[2021-06-14] MEDS ORDERED: predniSONE 20 MG TAB PO ONE (23:31)
[2021-06-14] MEDS ORDERED: diphenhydrAMINE 25 MG CAP PO ONE (23:31)
== END 2021-06-14 23:50 | disposition home or self-care (01) ==
LOC: ED 20:07
DX: J06.9 Acute upper respiratory infection, unspecified (principal); I10 Essential (primary) hypertension; F31.9 Bipolar disorder, unspecified; J45.909 Unspecified asthma, uncomplicated; Z87.891 Personal history of nicotine dependence; Z72.89 Other problems related to lifestyle; Z79.899 Other long term (current) drug therapy
CPT/HCPCS: 71046; 99283; J7512